=== PATIENT | female | born 1975 | race Caucasian/White ===

== ENCOUNTER 2018-10-06 18:30 | Emergency (ER) | payer BC, SELFPAY ==
[2018-10-06] MEDS ORDERED: ACETAMINOPHEN 500 MG TAB ONE (20:44)
--- NOTE | 2018-10-06 20:44 | RAD REPORT ---
EXAM DESCRIPTION: RAD - Chest Single View - 10/06/2018 8:34 pm CLINICAL HISTORY: CHEST PAIN Chest pain. COMPARISON: No comparisons FINDINGS: Portable technique limits examination quality. The lungs are grossly clear. The heart is normal in size. No displaced fractures. IMPRESSION: No acute intrathoracic process suspected.
[2018-10-06 20:53] LABS: Absolute Lymphocytes (CBC) 3.4 K/uL (0.7-4.9); Absolute Monocytes 0.7 K/uL (0.1-1.3); Absolute Neutrophil 4.2 K/uL (1.8-8.0); Eosinophils % 0.8 % (0-4.4); Hematocrit 43.4 % (36.0-45.0); MPV 8.3 fL (7.6-11.3); Monocytes % 8.2 % (3.3-12.3); RBC Red Blood Cell Count 4.71 M/uL (3.86-4.86)
[2018-10-06 21:04] LABS: BUN Blood Urea Nitrogen 10 mg/dL (7-18); Bicarbonate 24 mmol/L (21-32); Glucose Level 87 mg/dL (74-106); Potassium 3.5 mmol/L (3.5-5.1); Sodium Level 140 mmol/L (136-145); Troponin (Emerg Dept Use Only) < 0.02 ng/mL (0.0-0.045)
[2018-10-06 21:46] LABS: Urine Blood 2+ (NEG); Urine Glucose NEGATIVE (NEG); Urine Protein 1+ (NEG); Urine Specific Gravity >1.030 (1.005-1.030)
[2018-10-06 21:52] LABS: Urine Bacteria 20-50 /HPF (<20); Urine RBC <5 /HPF (NONE SEEN)
[2018-10-06 21:53] LABS: Urine Culture Reflex Order REFLEXED; Urine Mucus 1+ /HPF (NONE SEEN)
--- NOTE | 2018-10-06 21:58 | ER ---
Nurse's Notes [facility] Name: Radha Mcintosh Age: 42 yrs Sex: Female : 1975 Arrival Date: 10/06/2018 Time: 18:32 Bed 20 Private MD: Diagnosis: Chest pain, unspecified Presentation: 10/06 18:44 Presenting complaint: Patient states: for the past three days I have had chest pain, ch sob, and everying feels intense. light are too bright, noises are too loud, i feel very anxious. Transition of care: patient was not received from another setting of care. Onset of symptoms was October 03, 2018. Risk Assessment: Do you want to hurt yourself or someone else? Patient reports no desire to harm self or others. Initial Sepsis Screen: Does the patient meet any 2 criteria? No. Patient's initial sepsis screen is negative. Does the patient have a suspected source of infection? No. Patient's initial sepsis screen is negative. Care prior to arrival: None. 18:44 Method Of Arrival: Ambulatory 18:44 Acuity: LENORE 3 ch Triage Assessment: 18:46 General: Appears in no apparent distress. unkempt, Behavior is anxious, fussy, ch restless. Pain: Complains of pain in chest Pain currently is 8 out of 10 on a pain scale. Cardiovascular: Reports chest pain, shortness of breath, Capillary refill < 3 seconds in bilateral Clubbing of nail beds is absent Patient's skin is warm and dry. 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 - Social history:: Smoking status: Patient uses tobacco products, smokes one-half pack cigarettes per day, Patient uses street drugs, marijuana, Patient/guardian denies using alcohol. - Ebola Screening: : Patient negative for fever greater than or equal to 101.5 degrees Fahrenheit, and additional compatible Ebola Virus Disease symptoms Patient denies exposure to infectious person Patient denies travel to an Ebola-affected area in the 21 days before illness onset No symptoms or risks identified at this time. Screenin:53 Abuse screen: Denies threats or abuse. Denies injuries from another. Nutritional rr5 screening: No deficits noted. Tuberculosis screening: No symptoms or risk factors identified. Fall Risk IV access (20 points). Total Bhakta Fall Scale indicates No Risk (0-24 pts). Assessment: 19:55 General: Appears in no apparent distress. uncomfortable, Behavior is calm, cooperative, rr5 appropriate for age. Pain: Complains of pain in chest Pain radiates to jaw Pain currently is 10 out of 10 on a pain scale. Quality of pain is described as aching, Pain began gradually, Is intermittent. 19:55 Neuro: Level of Consciousness is awake, alert, obeys commands, Oriented to person, rr5 place, time, situation, Appropriate for age Reports light headed. Cardiovascular: Reports chest pain, Capillary refill < 3 seconds Patient's skin is warm and dry. Respiratory: Airway is patent Respiratory effort is even, unlabored, Respiratory pattern is regular, symmetrical. GI: No signs and/or symptoms were reported involving the gastrointestinal system. : No signs and/or symptoms were reported regarding the genitourinary system. EENT: No signs and/or symptoms were reported regarding the EENT system. Derm: Skin is intact, Skin temperature is warm. Musculoskeletal: Capillary refill < 3 seconds, Range of motion: intact in all extremities. 21:00 Reassessment: Patient appears in no apparent distress at this time. Patient is alert, rr5 oriented x 3, equal unlabored respirations, skin warm/dry/pink. awaiting for results. no complaints made. Patient states feeling better. Patient states symptoms have improved. 22:00 Reassessment: Patient appears in no apparent distress at this time. awaiting for review.rr5 22:30 Reassessment: Patient appears in no apparent distress at this time. Patient is alert, rr5 oriented x 3, equal unlabored respirations, skin warm/dry/pink. discharge instruction given and explained without complaints made. Patient states feeling better. Patient states symptoms have improved. Vital Signs: 18:46 BP 133 / 76; Pulse 76; Resp 14; Temp 98.8; Pulse Ox 99% on R/A; Weight 77.11 kg; Height ch 5 ft. 5 in. (165.10 cm); Pain 8/10; 20:00 BP 96 / 79; Pulse 63; Resp 17; Temp 98.5; Pulse Ox 99% on R/A; Pain 10/10; rr5 21:00 BP 99 / 60; Pulse 54; Resp 19; Pulse Ox 98% ; Pain 6/10; rr5 22:00 BP 101 / 70; Pulse 60; Resp 16; Temp 98.3; Pulse Ox 100% ; Pain 4/10; rr5 22:30 BP 97 / 70; Pulse 59; Resp 17; Temp 97.5; Pulse Ox 99% ; Pain 4/10; rr5 18:46 Body Mass Index 28.29 (77.11 kg, 165.10 cm) ED Course: 18:32 Patient arrived in ED. mr 18:45 Triage completed. 18:46 Arm band placed on left wrist. Patient placed in waiting room. EKG completed in triage. Results shown to MD. 19:43 Tomasz Joseph RN is Primary Nurse. rr5 19:59 Sincere Rowe MD is Attending Physician. gs 20:10 Patient has correct armband on for positive identification. Placed in gown. Bed in low rr5 position. Call light in reach. Side rails up X2. monitor and storage bin tender on. Pulse ox on. NIBP on. 20:15 Initial lab(s) drawn, by me, sent to lab. Inserted saline lock: 20 gauge in left rr5 forearm, using aseptic technique. Blood collected. 20:34 XRAY Chest (1 view) In Process Unspecified. EDMS 21:57 Shashank Walker MD is Referral Physician. gs 22:30 No provider procedures requiring assistance completed. IV discontinued, intact, rr5 bleeding controlled, No redness/swelling at site. Pressure dressing applied. 22:30 Patient maintains SpO2 saturation greater than 95% on room air. rr5 Administered Medications: 20:30 Drug: Tylenol 1000 mg {Note: complaining of chest pain..} Route: PO; rr5 21:30 Follow up: Response: No adverse reaction rr5 Outcome: 21:57 Discharge ordered by . gs 22:30 Discharged to home ambulatory. rr5 22:30 Condition: stable 22:30 Discharge instructions given to patient, Instructed on discharge instructions, follow up and referral plans. Demonstrated understanding of instructions, follow-up care. 22:33 Patient left the ED. rr5 Signatures: Dispatcher [employer] Olimpia Ross RN RN Frederick, Jo mr Sincere Rowe MD MD gs Roque, Raymond, RN RN rr5
--- NOTE | 2018-10-06 21:58 | EDPHYS ---
Physician Documentation [facility] Name: Radha Mcintosh Age: 42 yrs Sex: Female : 1975 Arrival Date: 10/06/2018 Time: 18:32 Bed 20 Private MD: ED Physician Sincere Rowe HPI: 10/06 21:51 This 42 yrs old Female presents to ER via Ambulatory with complaints of Chest gs Pain. 21:51 The patient or guardian reports chest pain that is located primarily in the anterior gs chest wall. 21:52 Onset: 3 day(s) ago. The pain does not radiate. Associated signs and symptoms: gs Pertinent positives: lightheadedness, anxious. The chest pain is described as a heaviness. Duration: The patient or guardian reports multiple episodes, that are intermittent, that wax and wane, with no pattern, the episodes last approximately 5 minute(s). Severity of pain: At its worst the pain was moderate in the emergency department the pain has improved markedly. The patient has experienced similar episodes in the past, a few times. 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 - Social history:: Smoking status: Patient uses tobacco products, smokes one-half pack cigarettes per day, Patient uses street drugs, marijuana, Patient/guardian denies using alcohol. - Ebola Screening: : Patient negative for fever greater than or equal to 101.5 degrees Fahrenheit, and additional compatible Ebola Virus Disease symptoms Patient denies exposure to infectious person Patient denies travel to an Ebola-affected area in the 21 days before illness onset No symptoms or risks identified at this time. ROS: 21:52 All other systems are negative. gs Exam: 21:52 Head/Face: Normocephalic, atraumatic. Eyes: Pupils equal round and reactive to light, gs extra-ocular motions intact. Lids and lashes normal. Conjunctiva and sclera are non-icteric and not injected. Cornea within normal limits. Periorbital areas with no swelling, redness, or edema. ENT: Nares patent. No nasal discharge, no septal abnormalities noted. Tympanic membranes are normal and external auditory canals are clear. Oropharynx with no redness, swelling, or masses, exudates, or evidence of obstruction, uvula midline. Mucous membranes moist. Neck: Trachea midline, no thyromegaly or masses palpated, and no cervical lymphadenopathy. Supple, full range of motion without nuchal rigidity, or vertebral point tenderness. No Meningismus. Chest/axilla: Normal chest wall appearance and motion. Nontender with no deformity. No lesions are appreciated. Cardiovascular: Regular rate and rhythm with a normal S1 and S2. No gallops, murmurs, or rubs. Normal PMI, no JVD. No pulse deficits. Respiratory: Lungs have equal breath sounds bilaterally, clear to auscultation and percussion. No rales, rhonchi or wheezes noted. No increased work of breathing, no retractions or nasal flaring. Abdomen/GI: Soft, non-tender, with normal bowel sounds. No distension or tympany. No guarding or rebound. No evidence of tenderness throughout. Back: No spinal tenderness. No costovertebral tenderness. Full range of motion. Skin: Warm, dry with normal turgor. Normal color with no rashes, no lesions, and no evidence of cellulitis. MS/ Extremity: Pulses equal, no cyanosis. Neurovascular intact. Full, normal range of motion. Neuro: Awake and alert, GCS 15, oriented to person, place, time, and situation. Cranial nerves II-XII grossly intact. Motor strength 5/5 in all extremities. Sensory grossly intact. Cerebellar exam normal. Normal gait. 21:52 Constitutional: The patient appears alert, awake. 21:52 ECG was reviewed by the Attending Physician. Vital Signs: 18:46 BP 133 / 76; Pulse 76; Resp 14; Temp 98.8; Pulse Ox 99% on R/A; Weight 77.11 kg; Height ch 5 ft. 5 in. (165.10 cm); Pain 8/10; 20:00 BP 96 / 79; Pulse 63; Resp 17; Temp 98.5; Pulse Ox 99% on R/A; Pain 10/10; rr5 21:00 BP 99 / 60; Pulse 54; Resp 19; Pulse Ox 98% ; Pain 6/10; rr5 22:00 BP 101 / 70; Pulse 60; Resp 16; Temp 98.3; Pulse Ox 100% ; Pain 4/10; rr5 22:30 BP 97 / 70; Pulse 59; Resp 17; Temp 97.5; Pulse Ox 99% ; Pain 4/10; rr5 18:46 Body Mass Index 28.29 (77.11 kg, 165.10 cm) ch MDM: 20:15 Patient medically screened. gs 21:52 Differential diagnosis: abnormal EKG, acute myocardial infarction, chest wall pain, gs pneumonia. HEART Score: History: Slightly Suspicious (0), ECG: Normal (0), Age: < or = 45 years (0), Risk Factors: No Risk Factors Known (0), Troponin: < or = 1 x Normal Limit (0). Data reviewed: vital signs, nurses notes, lab test result(s), EKG, radiologic studies. 21:58 Counseling: I had a detailed discussion with the patient and/or guardian regarding: the gs historical points, exam findings, and any diagnostic results supporting the discharge/admit diagnosis, the presence of at least one elevated blood pressure reading (>120/80) during this emergency department visit, radiology results, the need for outpatient follow up, the need for further work-up and treatment in the hospital. Response to treatment: the patient's symptoms have resolved after treatment, the patient's pain is gone. Special discussion: Based on the patient's history, exam, and Dx evaluation, there is no indication for emergent intervention or inpatient Tx. It is understood by the patient/guardian that if the Sx's persist or worsen they need to return immediately for re-evaluation. I have referred the patient to see his PCP for further evaluation of high blood pressure. 10/06 20:18 Order name: Basic Metabolic Panel; Complete Time: 21:39 10/06 20:18 Order name: CBC with Diff; Complete Time: 21:39 10/06 20:18 Order name: Troponin (emerg Dept Use Only); Complete Time: 21:39 gs 10/06 20:47 Order name: Urine Microscopic Only; Complete Time: 21:58 rr5 10/06 20:53 Order name: Urine Dipstick--Ancillary (enter results); Complete Time: 21:58 ar5 10/06 20:53 Order name: Urine --Ancillary (enter results); Complete Time: 21:58 ar5 10/06 20:18 Order name: XRAY Chest (1 view); Complete Time: 20:54 10/06 20:18 Order name: EKG; Complete Time: 20:20 10/06 20:18 Order name: Cardiac monitoring; Complete Time: 20:22 10/06 20:18 Order name: EKG - Nurse/Tech; Complete Time: 20:22 10/06 20:18 Order name: IV Saline Lock; Complete Time: 20:22 10/06 20:18 Order name: Labs collected and sent; Complete Time: 20:22 10/06 21:54 Order name: Urine Culture [facility] 10/06 20:18 Order name: O2 Per Protocol; Complete Time: 20:22 10/06 20:18 Order name: O2 Sat Monitoring; Complete Time: 20:22 10/06 20:18 Order name: Urine Test (obtain specimen); Complete Time: 20:47 10/06 20:18 Order name: Urine Dipstick-Ancillary (obtain specimen); Complete Time: 20:47 gs EC:52 Rate is 78 beats/min. Rhythm is regular. DC interval is normal. QRS interval is normal. gs No Q waves. T waves are Normal. No ST changes noted. Clinical impression: Normal ECG. Interpreted by me. Administered Medications: 20:30 Drug: Tylenol 1000 mg {Note: complaining of chest pain..} Route: PO; rr5 21:30 Follow up: Response: No adverse reaction rr5 Disposition: 10/06/18 21:57 Discharged to Home. Impression: Chest pain, unspecified. - Condition is Stable. - Discharge Instructions: Nonspecific Chest Pain, Managing Your Hypertension. - Medication Reconciliation Form, Thank You Letter, Antibiotic Education, Prescription Opioid Use form. - Follow up: Shashank Walker MD; When: 2 - 3 days; Reason: Re-evaluation by your physician. Signatures: Dispatcher [employer] Olimpia Ross, RN RN Sincere Rowe MD MD gs Roque, Raymond, RN RN rr5 Corrections: (The following items were deleted from the chart) 22:33 21:57 10/06/2018 21:57 Discharged to Home. Impression: Chest pain, unspecified. rr5 Condition is Stable. Forms are Medication Reconciliation Form, Thank You Letter, Antibiotic Education, Prescription Opioid Use. Follow up: Shashank Walker; When: 2 - 3 days; Reason: Re-evaluation by your physician. gs
--- NOTE | 2018-10-07 08:04 | EKG ---
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
== END 2018-10-06 22:33 | disposition home or self-care (01) ==
LOC: ER 18:30
DX: R07.9 Chest pain, unspecified (principal); F41.9 Anxiety disorder, unspecified; F17.210 Nicotine dependence, cigarettes, uncomplicated
CPT/HCPCS: 36415; 71045; 80048; 81003; 81015; 81025; 84484; 85025; 87086; 87088; 93005; 99285

== ENCOUNTER 2021-01-08 11:29 | Inpatient (IN) | payer OTHER ==
[2021-01-08] MEDS ORDERED: ONDANSETRON 4 MG/2 ML VIAL ONE ×2 (13:03→14:25)
[2021-01-08] MEDS ORDERED: MORPHINE 4 MG/ML SYR ONE ×3 (13:03→16:17)
[2021-01-08 13:14] LABS: Potassium 3.9 mmol/L (3.5-5.1)
--- NOTE | 2021-01-08 13:16 | RAD REPORT ---
EXAM DESCRIPTION: CT - Pelvis W/Cont - 01/08/2021 1:02 pm CLINICAL HISTORY: perianal abscess COMPARISON: No comparisons FINDINGS: 3 cm perianal enhancing fluid collection located at approximately the 10 to 11 o'clock pos ition from the anus in the ischioanal fossa and extending rightward to the perineum. Evaluation for a fistula is limited by CT. Involuting cyst in the right adnexa. Normal appendix. No bowel obstruction identified. No osseous abnormality. Trace pelvic free fluid which is likely physiologic. IMPRESSION: Approximately 3 cm perianal abscess.
[2021-01-08 13:22] LABS: Absolute Lymphocytes (CBC) 2.5 K/uL (0.7-4.9); Basophils % 0.7 % (0-1.3); Lymphocytes % 20.9 % (15.3-44.8); MPV 8.2 fL (7.6-11.3); RBC Red Blood Cell Count 4.51 M/uL (3.86-4.86)
--- NOTE | 2021-01-08 13:52 | EDPHYS ---
Physician Documentation [facility] Name: Radha Mcintosh Age: 45 yrs Sex: Female : 1975 Arrival Date: 01/08/2021 Time: 11:56 Bed 5 Private MD: ED Physician Michelet Reddy HPI: 01/08 12:49 This 45 yrs old Female presents to ER via Wheelchair with complaints of jr8 Abscess. 12:49 the patient presents with a swollen area of the buttocks. Onset: The symptoms/episode jr8 began/occurred gradually, 3 day(s) ago. Possible cause(s): unknown. Associated signs and symptoms: The patient has no apparent associated signs or symptoms. Modifying factors: the symptoms are alleviated by nothing, the symptoms are aggravated by walking, pressure, sitting, squeezing the lesion and expressing the contents, touching. Severity of symptoms: At their worst the symptoms were moderate, in the emergency department the symptoms are unchanged. The patient has not experienced similar symptoms in the past. The patient has not recently seen a physician. 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 - Social history:: Smoking status: Patient denies any tobacco usage or history of. ROS: 12:49 Eyes: Negative for injury, pain, redness, and discharge, ENT: Negative for injury, jr8 pain, and discharge, Neck: Negative for injury, pain, and swelling, Cardiovascular: Negative for chest pain, palpitations, and edema, Respiratory: Negative for shortness of breath, cough, wheezing, and pleuritic chest pain, Abdomen/GI: Negative for abdominal pain, nausea, vomiting, diarrhea, and constipation, Back: Negative for injury and pain, MS/Extremity: Negative for injury and deformity, Neuro: Negative for headache, weakness, numbness, tingling, and seizure. 12:49 Skin: Positive for abscess. Exam: 12:49 Cardiovascular: Regular rate and rhythm with a normal S1 and S2. No gallops, murmurs, jr8 or rubs. Normal PMI, no JVD. No pulse deficits. Respiratory: Lungs have equal breath sounds bilaterally, clear to auscultation and percussion. No rales, rhonchi or wheezes noted. No increased work of breathing, no retractions or nasal flaring. Abdomen/GI: Soft, non-tender, with normal bowel sounds. No distension or tympany. No guarding or rebound. No evidence of tenderness throughout. Back: No spinal tenderness. No costovertebral tenderness. Full range of motion. MS/ Extremity: Pulses equal, no cyanosis. Neurovascular intact. Full, normal range of motion. Neuro: Awake and alert, GCS 15, oriented to person, place, time, and situation. Cranial nerves II-XII grossly intact. Motor strength 5/5 in all extremities. Sensory grossly intact. 12:49 Constitutional: The patient appears alert, awake, in obvious pain, uncomfortable. 12:49 Skin: Patient has a markedly tender swollen and indurated localized area to her right gluteal cleft extending superiorly just before the labia majora and inferior and medially abutting against the anal orifice.. Vital Signs: 11:56 BP 108 / 64; Pulse 64; Resp 17; Temp 97.7; Pulse Ox 100% on R/A; Weight 77.11 kg; jl7 Height 5 ft. 6 in. (167.64 cm); Pain 10/10; 11:56 Body Mass Index 27.44 (77.11 kg, 167.64 cm) jl7 MDM: 12:25 Patient medically screened. jr8 13:49 Data reviewed: vital signs, nurses notes, lab test result(s), radiologic studies, CT jr8 scan. Data interpreted: Pulse oximetry: on room air is 100 %. Interpretation: normal. Counseling: I had a detailed discussion with the patient and/or guardian regarding: the historical points, exam findings, and any diagnostic results supporting the discharge/admit diagnosis, lab results, radiology results, the need for further work-up and treatment in the hospital. ED course: Dr. Bullock consulted about the perianal abscess. Will take patient to surgery in the morning. Will admit to his service as well.. 01/08 12:35 Order name: Basic Metabolic Panel; Complete Time: 13:15 jr8 01/08 12:35 Order name: CBC with Diff; Complete Time: 13:33 jr8 01/08 12:35 Order name: Blood Culture Adult (2) jr8 01/08 12:35 Order name: Procalcitonin; Complete Time: 14:03 jr8 01/08 14:05 Order name: SARS-COV-2 RT PCR; Complete Time: 14:16 EDMS 01/08 12:35 Order name: CT Pelvis w cont; Complete Time: 13:33 jr8 01/08 12:35 Order name: IV Saline Lock; Complete Time: 12:56 jr8 01/08 12:35 Order name: Labs collected and sent; Complete Time: 12:56 jr8 Administered Medications: 12:55 Drug: morphine 4 mg Route: IVP; Site: left antecubital; hb 13:33 Follow up: Response: No adverse reaction hb 12:56 Drug: Zofran (Ondansetron) 4 mg Route: IVP; Site: left antecubital; hb 13:33 Follow up: Response: No adverse reaction hb 13:58 Drug: LevaQUIN (levofloxacin) 750 mg Volume: 150 ml; Route: IVPB; Infused Over: 90 hb mins; Site: left antecubital; 13:58 Drug: NS 0.9% 1000 ml Route: IV; Rate: 1000 ml; Site: left antecubital; hb 14:05 Drug: morphine 4 mg Route: IVP; Site: left antecubital; hb 14:05 Drug: Zofran (Ondansetron) 4 mg Route: IVP; Site: left antecubital; hb 14:54 Drug: vancoMYCIN 1 grams Route: IVPB; Infused Over: 2 hrs; Site: left antecubital; hb Disposition: 16:57 Co-signature as Attending Physician, Michelet Reddy MD I agree with the assessment and rn plan of care. Attestation: The patient's history, exam findings, diagnostics, and a summary of any interventions or procedures was reviewed in detail with Gabe MEDINA. Disposition Summary: 01/08/21 13:51 Hospitalization Ordered Hospitalization Status: Observation [facility] Provider: Aston Bullock Condition: Stable jr Problem: new jr8 Symptoms: have improved jr8 Bed/Room Type: Standard [facility] Location: Telemetry/MedSurg (observation)(01/08/21 15:43) dw Room Assignment: 218(01/08/21 15:43) dw Diagnosis - Perianal Abscess jr8 Forms: - Medication Reconciliation Form jr8 - SBAR form jr8 Signatures: Dispatcher [employer] EDMariah Hunter RN RN Michelet Calloway MD MD rn Roszak, Josh, PA PA jr8 Samaria Mcclain RN RN Des Sage RN RN jl7 Corrections: (The following items were deleted from the chart) 13:02 12:40 CORONAVIRUS+MR.LAB.BRZ ordered. [facility] 15: 13:51 Telemetry/MedSurg (observation) jr8 hb 15: 13:51 jr8 hb 15:43 15:08 [facility] ER HOLD hb dw 15:43 15:08 ERHOLD- hb
--- NOTE | 2021-01-08 13:52 | ER ---
Nurse's Notes [facility] Name: Radha Mcintosh Age: 45 yrs Sex: Female : 1975 Arrival Date: 01/08/2021 Time: 11:56 Bed 5 Private MD: Diagnosis: Perianal Abscess Presentation: 01/08 11:56 Chief complaint: Patient states: Abscess on right side buttock since Wednesday, reports jl7 "It's the size of a grapefruit.". Coronavirus screen: Vaccine status: Patient reports being unvaccinated. At this time, the client does not indicate any symptoms associated with coronavirus-19. Ebola Screen: No symptoms or risks identified at this time. Initial Sepsis Screen: Does the patient meet any 2 criteria? No. Patient's initial sepsis screen is negative. Does the patient have a suspected source of infection? No. Patient's initial sepsis screen is negative. Risk Assessment: Do you want to hurt yourself or someone else? Patient reports no desire to harm self or others. Onset of symptoms was January 05, 2021. 11:56 Method Of Arrival: Wheelchair jl7 11:56 Acuity: LENORE 3 jl7 Triage Assessment: 11:58 General: Appears in no apparent distress. uncomfortable, Behavior is cooperative, jl7 anxious. Pain: Complains of pain in buttocks Pain currently is 9 out of 10 on a pain scale. 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 - Social history:: Smoking status: Patient denies any tobacco usage or history of. Screenin:10 Abuse screen: Denies threats or abuse. Nutritional screening: No deficits noted. ap3 Tuberculosis screening: No symptoms or risk factors identified. 13:00 Fall Risk None identified. hb Assessment: 12:30 General: Appears in no apparent distress. uncomfortable, Behavior is calm, cooperative. hb Pain: Pain currently is 10 out of 10 on a pain scale. Neuro: Level of Consciousness is awake, alert, obeys commands, Oriented to person, place, time, situation. Cardiovascular: Patient's skin is warm and dry. Rhythm is regular. Respiratory: Respiratory effort is even, unlabored, Respiratory pattern is regular, symmetrical. GI: No signs and/or symptoms were reported involving the gastrointestinal system. : No signs and/or symptoms were reported regarding the genitourinary system. EENT: No signs and/or symptoms were reported regarding the EENT system. Derm: Skin is pink, warm \\T\\ dry. abscess on right labia that extends to top of left thigh and left gluteal cleft. Musculoskeletal: No signs and/or symptoms reported regarding the musculoskeletal system. 13:15 Reassessment: Patient appears in no apparent distress at this time. No changes from hb previously documented assessment. Patient and/or family updated on plan of care and expected duration. Pain level reassessed. Patient is alert, oriented x 3, equal unlabored respirations, skin warm/dry/pink. 13:57 Reassessment: Per CAROL Bernal, plan is to take pt to OR in the morning, ok to eat/drink hb now, NPO after midnight. Pt verbalized understanding of plan. Vital Signs: 11:56 BP 108 / 64; Pulse 64; Resp 17; Temp 97.7; Pulse Ox 100% on R/A; Weight 77.11 kg; jl7 Height 5 ft. 6 in. (167.64 cm); Pain 10/10; 11:56 Body Mass Index 27.44 (77.11 kg, 167.64 cm) jl7 ED Course: 11:56 Patient arrived in ED. jl7 11:58 Triage completed. jl7 11:58 Arm band placed on right wrist. jl7 12:10 Patient has correct armband on for positive identification. Bed in low position. Call ap3 light in reach. Side rails up X2. 12:24 Gabe Parker PA is PHCP. jr8 12:24 Michelet Reddy MD is Attending Physician. jr8 12:50 Inserted saline lock: 18 gauge in left antecubital area, using aseptic technique. hb ,using aseptic technique. by Darren GOTTI Blood collected. 13:02 CT Pelvis w cont In Process Unspecified. EDMS 13:03 Warm blanket given. Pillow given. Pulse ox on. NIBP on. mh5 13:03 COVID swab sent to lab. 5 13:36 Samaria Mcclain, RN is Primary Nurse. hb 13:51 Aston Bullock MD is Hospitalizing Provider. jr8 15:05 No provider procedures requiring assistance completed. Patient admitted, IV remains in hb place. Administered Medications: 12:55 Drug: morphine 4 mg Route: IVP; Site: left antecubital; hb 13:33 Follow up: Response: No adverse reaction hb 12:56 Drug: Zofran (Ondansetron) 4 mg Route: IVP; Site: left antecubital; hb 13:33 Follow up: Response: No adverse reaction hb 13:58 Drug: LevaQUIN (levofloxacin) 750 mg Volume: 150 ml; Route: IVPB; Infused Over: 90 hb mins; Site: left antecubital; 13:58 Drug: NS 0.9% 1000 ml Route: IV; Rate: 1000 ml; Site: left antecubital; hb 14:05 Drug: morphine 4 mg Route: IVP; Site: left antecubital; hb 14:05 Drug: Zofran (Ondansetron) 4 mg Route: IVP; Site: left antecubital; hb 14:54 Drug: vancoMYCIN 1 grams Route: IVPB; Infused Over: 2 hrs; Site: left antecubital; hb Outcome: 13:51 Decision to Hospitalize by Provider. jr8 15:05 Admitted to ER Hold. Please see [facility] for further documentation. hb 15:05 Condition: stable 15:05 Instructed on the need for admit, Demonstrated understanding of instructions. 15:06 Patient left the ED. hb 16:37 Patient left the ED. ap3 Signatures: Dispatcher [employer] EDMS Gabe Parker PA PA jr8 Samaria Mcclain, RN RN Zaira Denson [facility] Sage RN RN jl7 Kyra Frye RN RN ap3
[2021-01-08] MEDS ORDERED: NA CHLORIDE 0.9% 250 ML ONE (14:04)
[2021-01-08] MEDS ORDERED: Levofloxacin 750mg IV 750 MG/150 ML BAG IV ONE (14:04)
[2021-01-08] MEDS ORDERED: VANCOMYCIN 1 GM/VIAL ONE (14:04)
[2021-01-08] MEDS ORDERED: NA CHLORIDE 0.9% 1,000 ML ONE (14:05)
[2021-01-08] MEDS ORDERED: ONDANSETRON 4 MG/2 ML VIAL IV PRN (15:04)
[2021-01-08] MEDS: D5 0.45 NS 1,000 ML IV SCH (15:04)
[2021-01-08] MEDS ORDERED: ACETAMINOPHEN 500 MG TAB PO PRN (15:04)
[2021-01-08 15:10] VITALS: BMI 27.4
[2021-01-08] MEDS ORDERED: D5 0.45 NS 1,000 ML IV ONE (15:39)
[2021-01-08] MEDS: MORPHINE 4 MG/ML SYR IV PRN ×3 (15:54→23:12)
[2021-01-08] MEDS ORDERED: VANCOMYCIN 1.5 GM in NA CHLORIDE 0.9% 500 ML IVPB SCH (17:00)
[2021-01-08] MEDS ORDERED: VANCOMYCIN 500 MG in NA CHLORIDE 0.9% 100 ML IVPB ONE (18:00)
[2021-01-08 18:21] LABS: Specific Gravity > 1.030 (1.005-1.030)
--- NOTE | 2021-01-08 19:24 | HP ---
Date of Admission: 01/08/2021 Reason For Admission: Pain in right buttock. History Of Present Illness: The patient is a 45-year-old female, who states that since Wednesday she martinez s had increasing pain and swelling on the right side of the anus to the buttocks. Pain is made worse by sitting, pressure, walking. No sore throat, runny nose, cough, headaches, or dizziness. No ches t pain. No fever or chills. Review of Systems: Otherwise unremarkable. Past Medical History: Negative. Past Surgical History: Tib-fib fractures. Allergies: NO ALLERGIES. Social History: The patient denies smoking or drinking alcohol. Family History: Noncontributory. Physical Examination: Vital Signs: Stable. She is currently afebrile. General: She is awake, alert, and oriented x3. Head and Neck: Cranial nerves 2 through 12 grossly within normal limits. No neck masses. No JVD. Throat clear. Neck is supple. Chest: Clear. Heart: S1 and S2. Abdomen: Soft, nondistended. Positive bowel sounds. Extremities: Neurovascular intact. Neuro: Nonfocal. Genitalia: On the perineal exam near the anus and on the right side in the lithotomy position at nadia roximately 10 o'clock position, there is induration and tender, some redness, minimal fluctuance. Laboratory Data: White count is 12,000. Absolute neutrophils are elevated. Chemistry is reviewed, essentially unremarkable. CO2 is 20, however, and the patient had a pelvic CT, which showed an appro ximately 3 cm perianal abscess. Assessment: A 45-year-old female with a right perirectal abscess. Recommendations: Admit, n.p.o., IV fluid, IV antibiotic, to the OR for exam under anesthesia, rigid proctoscopy, and incision, drainage and debridement of right perirectal abscess. The patient underst ands the risks, benefits, and alternatives and agrees to procedure. ALESSANDRO/FIOR Voice ID: [id number]
[2021-01-09] MEDS: D5 0.45 NS 1,000 ML IV SCH ×2 (01:04→04:26)
[2021-01-09] MEDS ORDERED: VANCOMYCIN/NS 1 gm 1 GM/250 ML BAG IVPB SCH (03:00)
[2021-01-09] MEDS: MORPHINE 4 MG/ML SYR IV PRN (04:35)
[2021-01-09 05:52] LABS: Absolute Lymphocytes (CBC) 2.2 K/uL (0.7-4.9); Basophils % 0.3 % (0-1.3); Lymphocytes % 19.5 % (15.3-44.8); MPV 8.4 fL (7.6-11.3); RBC Red Blood Cell Count 4.12 M/uL (3.86-4.86)
[2021-01-09 05:59] LABS: BUN Blood Urea Nitrogen 7 mg/dL (7-18); Bicarbonate 22 mmol/L (21-32); Glucose Level 102 mg/dL (74-106); Potassium 3.7 mmol/L (3.5-5.1); Sodium Level 137 mmol/L (136-145)
[2021-01-09] MEDS ORDERED: propofoL 200 MG/20 ML VIAL IV ONE (08:06)
[2021-01-09] MEDS ORDERED: FENTANYL CITR 100 MCG/2 ML ONE (08:06)
[2021-01-09] MEDS ORDERED: LIDOCAINE 1% MPF 30 ML VIAL ONE (08:07)
[2021-01-09] MEDS ORDERED: MIDAZOLAM HCL 2 MG/2 ML INJ ONE ×2 (08:07→10:13)
[2021-01-09] MEDS ORDERED: ONDANSETRON 4 MG/2 ML VIAL ONE (08:07)
[2021-01-09] MEDS ORDERED: KETOROLAC 30 MG/ML INJ ONE (08:07)
[2021-01-09] MEDS ORDERED: dexAMETHasone 10 MG/ML VIAL ONE (08:07)
[2021-01-09] MEDS ORDERED: Ringers Lactate 1,000 ML IV ONE (08:24)
[2021-01-09] MEDS ORDERED: ACETAMINOPHEN 500 MG TAB ONE (08:30)
[2021-01-09] MEDS ORDERED: CELECOXIB 100 MG CAPSULE ONE (08:32)
[2021-01-09] MEDS ORDERED: CEFAZOLIN/SWI 1gm 1 GM/10 ML SYR ONE (08:53)
--- NOTE | 2021-01-09 09:14 | P.OP ---
Master Certified Rv Technician: Alvaro BREAUX Preoperative diagnosis: Right Trista-Rectal Abscess Primary procedure: EUA, Rigid Procto, I and D and Debridement Right Trista-Rectal Abscess Anesthesia: General Estimated blood loss: min Specimen: pus Findings: as above Complications: None Transferred to: Recovery Room Condition: Good
[2021-01-09] MEDS ORDERED: KETAMINE HCL 500 MG/5 ML VIAL ONE (09:17)
[2021-01-09] MEDS ORDERED: CODEINE 30MG/APAP 300MG TAB PO PRN (09:37)
[2021-01-09 09:42] VITALS: O2SAT 100
[2021-01-09] MEDS ORDERED: SUCCINYLCHOLINE 20 MG/ML (10 ML) IV ONE (09:59)
[2021-01-09] MEDS ORDERED: CHLORHEXIDINE GLUCO 4% 120 ML TOP SCH (10:00)
[2021-01-09] MEDS ORDERED: MEPERIDINE HCL 25 MG/ML SYR ONE (10:11)
--- NOTE | 2021-01-09 10:25 | OP ---
Date of Procedure: 01/09/2021 Surgeon: Aston Bullock MD Adjunct Writing Instructor: Alvaro Duong, surgical lead. Preoperative Diagnosis: Right perirectal abscess. Postoperative Diagnosis: Right perirectal abscess. Procedure: Exam under anesthesia; rigid proctoscopy; incision, drainage, and debridement of right pe rirectal abscess. Estimated Blood Loss: Minimal. Specimen: Pus. Findings: As above. Anesthesia: General. Complications: None. Disposition: The patient tolerated the procedure in stable condition and taken to recovery in good g eneral condition. Operative Note: The patient was brought to the OR and placed in supine position. General anesthesia was begun. The patient was placed in the lithotomy position. Prepped and draped in usual sterile f ashion. Exam under anesthesia and rigid proctoscopy performed, no evidence of intraluminal disease i dentified and then Marcaine 0.5% infiltrated over the reddened area at the 10 to 11 o'clock position to the anus on the right perineum and a 3 cm incision was made in deep to the subcutaneous tissue. A bscess cavity identified, opened with a 15 blade. Pus under pressure evacuated, loculation broken up , necrotic tissue debrided. Wound irrigated. Cultures done. Bleeding controlled with cautery. Wet -to-dry normal saline dressing change applied. The patient tolerated the procedure in stable condition and taken to Recovery in good gener al condition. /MODL Voice ID: [id number] Report ID: [id number]
[2021-01-09] MEDS: VANCOMYCIN 1.5 GM in NA CHLORIDE 0.9% 500 ML IVPB SCH (13:17)
[2021-01-09] MEDS: Levofloxacin 750mg IV 750 MG/150 ML BAG IV SCH (17:34)
[2021-01-09] MEDS: HYDROMORPHONE HCL 1 MG/ML INJ IV PRN (17:34)
[2021-01-09] MEDS: MUPIROCIN 2% OINT 22GM TUBE TOP SCH (20:00)
[2021-01-09] MEDS: ONDANSETRON 4 MG/2 ML VIAL IV PRN (20:01)
[2021-01-10] MEDS: D5 0.45 NS 1,000 ML IV SCH ×3 (05:04→17:42)
[2021-01-10] MEDS: VANCOMYCIN 1.5 GM in NA CHLORIDE 0.9% 500 ML IVPB SCH ×2 (06:27→18:00)
[2021-01-10] MEDS: MUPIROCIN 2% OINT 22GM TUBE TOP SCH ×2 (09:00→21:00)
[2021-01-10] MEDS: HYDROMORPHONE HCL 1 MG/ML INJ IV PRN ×2 (13:23→17:41)
--- NOTE | 2021-01-10 15:59 | PN ---
Date of Progress Note: 01/10/2021 Subjective: The patient is awake, alert, feels much better. Objective: Vital signs: Stable and afebrile. Skin: Dressing is clean, dry and intact. Laboratory Data: Microbiology: Gram stain done shows gram positive cocci in pairs and chains. Sens itivity is pending. Assessment: Status post I and D and debridement, perirectal abscess. Recommendations: Continue IV antibiotics. Check cultures and adjust antibiotics accordingly prior t o discharge and wound care is ordered and we are teaching the family. /MODL Voice ID: [id number] Report ID: [id number]
[2021-01-10] MEDS: Levofloxacin 750mg IV 750 MG/150 ML BAG IV SCH (17:42)
[2021-01-10] MEDS: ONDANSETRON 4 MG/2 ML VIAL IV PRN (17:42)
[2021-01-11] MEDS: D5 0.45 NS 1,000 ML IV SCH (03:04)
[2021-01-11 05:18] VITALS: BP 99/58; TEMP 98
[2021-01-11] MEDS: VANCOMYCIN 1.5 GM in NA CHLORIDE 0.9% 500 ML IVPB SCH (06:00)
[2021-01-11] MEDS: MUPIROCIN 2% OINT 22GM TUBE TOP SCH (08:11)
--- NOTE | 2021-01-11 10:00 | DS ---
Date of Discharge: 01/11/2021 Admitting Diagnosis: Perirectal abscess. Discharge Diagnosis: Perirectal abscess. Procedure Performed: Incision, drainage and debridement of perirectal abscess, exam under anesthesia , and rigid proctoscopy. Hospital Course: The patient is a 45-year-old female, underwent the aforementioned procedure. Posto peratively, she was kept an extra day for IV antibiotics. Currently, she is doing well. Pain is con trolled. Wound is clean. Infection is under control. She is afebrile. Therefore, the patient will be discharged to home. Disposition: Home. Condition: Stable. Discharge Instructions: Resume home medications and diet. Activity as tolerated. No heavy lifting. Follow up [facility] in 1-2 weeks. Cipro 500 mg p.o. q.12, Tylenol No. 3 one tablet p.o. q.4 p.r.n. pain. Wet-to-dry normal saline dressing changes as instructed. /MODL Voice ID: [id number] Report ID: [id number]
== END 2021-01-11 11:15 | disposition home or self-care (01) | DRG 983 ==
LOC: ER 11:29 → ERHOLD 14:18 → 2ND 16:05 → OBSVTOIN 20:08
PROVIDERS: ADMIT Surgery; ATTEND Surgery
PROC: 0JD90ZZ Extraction of Buttock Subcutaneous Tissue and Fascia, Open Approach (ICD-10-PCS; principal; 2021-01-09 09:00)
DX: K61.1 Rectal abscess (principal); Z20.822 Contact with and (suspected) exposure to COVID-19
CPT/HCPCS: 36415; 72193; 80048; 80202; 81025; 82565; 84145; 85025; 87040; 87070; 87075; 87077; 87186; 87205; 96374; 96375; 99285; G0378; J0330; J0690; J1100; J1170; J2175; J2250; J2405; J2704; J3010; J3370; J7030; J7040; J7050; J7120; J7799; Q9967; U0003

== ENCOUNTER 2021-07-02 08:15 | Emergency (ER) | payer OTHER ==
[2021-07-02 08:36] LABS: Urine Blood 2+ (Negative); Urine Glucose Negative (Negative); Urine Protein 2+ (Negative); Urine Specific Gravity 1.025 (1.005-1.030); Urine pH 5.5 (5.0-7.0)
[2021-07-02] MEDS ORDERED: KETOROLAC 30 MG/ML INJ ONE (09:03)
[2021-07-02] MEDS ORDERED: MORPHINE 4 MG/ML SYR ONE (09:03)
[2021-07-02] MEDS ORDERED: ONDANSETRON 4 MG/2 ML VIAL ONE (09:04)
[2021-07-02] MEDS ORDERED: NA CHLORIDE 0.9% 1,000 ML ONE (09:07)
[2021-07-02 09:11] LABS: Absolute Lymphocytes (CBC) 1.5 K/uL (0.7-4.9); Hematocrit 39.8 % (36.0-45.0); Lymphocytes % 11.6 % (15.3-44.8); MPV 7.7 fL (7.6-11.3); RBC Red Blood Cell Count 4.49 M/uL (3.86-4.86)
[2021-07-02 09:13] LABS: Protime INR 1.12
[2021-07-02 09:18] LABS: Urine Specific Gravity/Preg 1.025 (1.005-1.030)
[2021-07-02 09:30] LABS: ALT/SGPT 15 U/L (12-78); AST/SGOT 9 U/L (15-37); Albumin 3.4 g/dL (3.4-5.0); Alkaline Phosphatase 57 U/L (45-117); BUN Blood Urea Nitrogen 10 mg/dL (7-18); Bicarbonate 23 mmol/L (21-32); Bilirubin Direct 0.2 mg/dL (0-0.2); Bilirubin Total 0.8 mg/dL (0.2-1.0); Glucose Level 125 mg/dL (74-106); Lipase 59 U/L (73-393); Magnesium 2.1 mg/dL (1.8-2.4); NT PRO-BNP 57 pg/mL (<125); Potassium 3.6 mmol/L (3.5-5.1); Protein, Total 7.3 g/dL (6.4-8.2); Sodium Level 135 mmol/L (136-145)
[2021-07-02 09:32] LABS: Troponin High Sensitivity < 3.00 pg/mL (<58.9)
--- NOTE | 2021-07-02 10:22 | RAD REPORT ---
EXAM DESCRIPTION: CT - Angio Aorta For Dissection - 07/02/2021 9:53 am CLINICAL HISTORY: Shortness of breath, abdominal pain COMPARISON: CT pelvis 2020 TECHNIQUE: Computed tomography angiography of the chest, abdomen pelvis were obtained. 100 cc Isovue 370 was administered intravenously. Coronal and sagittal reconstruction were performed. MIP 3D reconstruction was performed All CT scans are performed using dose optimization technique as appropriate and may include automated exposure control or mA/KV adjustment according to patient size. FINDINGS: An aortic dissection is not seen. An aortic aneurysm is not displayed. Pulmonary embolus is not seen The celiac, SMA and YEIMY are patent . A lung consolidation is not present. A pericardial effusion is not seen. A pleural effusion is not no becki. The liver,spleen, pancreas, adrenalsand kidneys demonstrate no significant abnormality. The appendix is normal. There no evidence diverticulitis. Small umbilical hernia. Mild prominence of the endometrium. Bladder wall appears thickened. IMPRESSION: Negative for an aortic dissection. Negative for pulmonary embolus Prominence of the endometrium. If the patient is premenopausal then this likely is not significant. I f the patient is postmenopausal then this could indicate neoplasm, hyperplasia or polyp. Mild bladder wall thickening may indicate cystitis
--- NOTE | 2021-07-02 10:26 | ER ---
Nurse's Notes [facility] Name: Radha Mcintosh Age: 45 yrs Sex: Female : 1975 Arrival Date: 07/02/2021 Time: 08:16 Bed 5 Private MD: Soto Landeros Diagnosis: Acute cystitis;UTI/ Urinary tract infection, site not specified Presentation: 07/02 08:21 Chief complaint: Patient states: she started having right lower flank pain on ap3 06/23/2021. This morning she noticed blood in her urine and also began having right sided chest pain. Coronavirus screen: At this time, the client does not indicate any symptoms associated with coronavirus-19. Ebola Screen: No symptoms or risks identified at this time. Initial Sepsis Screen: Does the patient meet any 2 criteria? No. Patient's initial sepsis screen is negative. Does the patient have a suspected source of infection? No. Patient's initial sepsis screen is negative. Risk Assessment: Do you want to hurt yourself or someone else? Patient reports no desire to harm self or others. Onset of symptoms was June 23, 2021. 08:21 Method Of Arrival: Ambulatory ap3 08:21 Acuity: LENORE 3 ap3 Triage Assessment: 08:23 General: Appears in no apparent distress. uncomfortable, Behavior is calm, cooperative, ap3 appropriate for age. Pain: Complains of pain in right side of chest, right low back area Pain currently is 8 out of 10 on a pain scale. Neuro: Level of Consciousness is awake, alert, obeys commands, Oriented to person, place, time, situation, Appropriate for age Gait is steady, Speech is normal. Cardiovascular: Patient's skin is warm and dry. Respiratory: Airway is patent Respiratory effort is even, unlabored. : Reports pain in right flank(s). 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 - Social history:: Smoking status: Patient reports the use of cigarette tobacco products, smokes one-half pack cigarettes per day. - Family history:: not pertinent. Screenin:25 Abuse screen: Denies threats or abuse. Nutritional screening: No deficits noted. ap3 Tuberculosis screening: No symptoms or risk factors identified. 08:32 Fall Risk No fall in past 12 months (0 pts). No secondary diagnosis (0 pts). IV access vg1 (20 points). Ambulatory Aid- None/Bed Rest/Nurse Assist (0 pts). Gait- Normal/Bed Rest/Wheelchair (0 pts) Mental Status- Oriented to own ability (0 pts). Total Bhakta Fall Scale indicates No Risk (0-24 pts). Assessment: 08:30 General: Appears in no apparent distress. uncomfortable, Behavior is calm, cooperative. vg1 Pain: Complains of pain in lower back, left flank, right flake, and chest Pain does not radiate. Pain currently is 8 out of 10 on a pain scale. Pain began 2-3 days ago. Neuro: Level of Consciousness is awake, alert, obeys commands, Oriented to person, place, time, situation. Cardiovascular: Reports chest pain, since this morning Denies shortness of breath, Patient's skin is warm and dry. Respiratory: Airway is patent Respiratory effort is even, unlabored, Denies shortness of breath. GI: Abdomen is flat, Reports nausea, vomiting. : Reports burning with urination, urinary frequency, 'blood in urine this morning'. EENT: No signs and/or symptoms were reported regarding the EENT system. Derm: Skin is intact, is healthy with good turgor. Musculoskeletal: Circulation, motion, and sensation intact. 09:34 Reassessment: Patient appears in no apparent distress at this time. Patient and/or vg1 family updated on plan of care and expected duration. Pain level reassessed. Patient is alert, oriented x 3, equal unlabored respirations, skin warm/dry/pink. Rated pain 3/10 Patient states feeling better. 10:32 Reassessment: Patient appears in no apparent distress at this time. No changes from vg1 previously documented assessment. Patient and/or family updated on plan of care and expected duration. Pain level reassessed. Patient is alert, oriented x 3, equal unlabored respirations, skin warm/dry/pink. pt up for d/c, currently waiting for IV antibiotics to complete. Vital Signs: 08:21 BP 106 / 73; Pulse 90; Resp 17; Temp 99.4(O); Pulse Ox 98% ; Weight 77.11 kg; Height 5 ap3 ft. 6 in. (167.64 cm); Pain 8/10; 09:35 BP 91 / 61; Pulse 66; Resp 15; Pulse Ox 100% ; vg1 10:33 BP 99 / 60; Pulse 80; Resp 15; Pulse Ox 98% on R/A; vg1 08:21 Body Mass Index 27.44 (77.11 kg, 167.64 cm) ap3 ED Course: 08:16 Patient arrived in ED. as 08:19 Soto Landeros DO is Private Physician. as 08:23 Gardenia Downs, SHEN is Primary Nurse. vg1 08:23 Triage completed. ap3 08:25 John Murray MD is Attending Physician. topher 08:26 Patient maintains SpO2 saturation greater than 95% on room air. ap3 08:26 Arm band placed on right wrist. ap3 08:32 Patient has correct armband on for positive identification. Bed in low position. Call vg1 light in reach. Side rails up X 1. bone worker on. Pulse ox on. NIBP on. 08:40 Inserted saline lock: 20 gauge in right antecubital area, using aseptic technique. vg1 Blood collected. 09:53 Angio Aorta For Dissection In Process Unspecified. EDMS 10:03 XRAY Chest (1 view) In Process Unspecified. EDMS 10:25 Soto Landeros DO is Referral Physician. topher 11:05 No provider procedures requiring assistance completed. IV discontinued, intact, vg1 bleeding controlled, No redness/swelling at site. Pressure dressing applied. Administered Medications: 09:05 Drug: NS 0.9% 1000 ml Route: IV; Rate: 1 bolus; Site: right antecubital; vg1 10:47 Follow up: IV Status: Completed infusion; IV Intake: 1000ml vg1 09:05 Drug: Zofran (Ondansetron) 4 mg Route: IVP; Site: right antecubital; vg1 09:34 Follow up: Response: No adverse reaction; Marked relief of symptoms vg1 09:07 Drug: Ketorolac 30 mg Route: IVP; Site: right antecubital; vg1 09:34 Follow up: Response: No adverse reaction; Pain is decreased vg1 09:09 Drug: morphine 4 mg Route: IVP; Site: right antecubital; vg1 09:34 Follow up: Response: No adverse reaction; Pain is decreased vg1 10:29 Drug: Rocephin (cefTRIAXone) 1 grams Route: IV; Rate: per protocol; Site: right vg1 antecubital; 10:47 Follow up: IV Status: Completed infusion vg1 10:32 Drug: LevOfloxacin 750 mg Route: PO; vg1 10:47 Follow up: Response: No adverse reaction vg1 Intake: 10:47 IV: 1000ml; Total: 1000ml. vg1 Outcome: 10:26 Discharge ordered by . topher 11:05 Discharged to home ambulatory. vg1 11:05 Condition: good 11:05 Discharge instructions given to patient, Instructed on discharge instructions, follow up and referral plans. medication usage, Demonstrated understanding of instructions, follow-up care, medications, Prescriptions given X 2. 11:05 Patient left the ED. vg1 Signatures: Dispatcher [employer] EDJohn Russo MD MD cha Martinez, Amelia as Prokisch, Amanda, RN RN ap3 Gardenia Downs RN RN vg1
--- NOTE | 2021-07-02 10:26 | EDPHYS ---
Physician Documentation [facility] Name: Radha Mcintosh Age: 45 yrs Sex: Female : 1975 Arrival Date: 07/02/2021 Time: 08:16 Bed 5 Private MD: [facility] ED Physician John Murray HPI: 07/02 09:32 This 45 yrs old Female presents to ER via Ambulatory with complaints of Flank topher Pain, Chest Pain, Nausea. 09:32 The patient complains of pain in the left mid back and right mid back. 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 - Social history:: Smoking status: Patient reports the use of cigarette tobacco products, smokes one-half pack cigarettes per day. - Family history:: not pertinent. ROS: 09:33 Constitutional: Negative for fever, chills, and weight loss, Eyes: Negative for injury, topher pain, redness, and discharge, ENT: Negative for injury, pain, and discharge, Neck: Negative for injury, pain, and swelling, Cardiovascular: Negative for chest pain, palpitations, and edema, Respiratory: Negative for shortness of breath, cough, wheezing, and pleuritic chest pain, : Negative for injury, bleeding, discharge, and swelling, MS/Extremity: Negative for injury and deformity, Skin: Negative for injury, rash, and discoloration, Neuro: Negative for headache, weakness, numbness, tingling, and seizure, Psych: Negative for depression, anxiety, suicide ideation, homicidal ideation, and hallucinations, Allergy/Immunology: Negative for hives, rash, and allergies, Endocrine: Negative for neck swelling, polydipsia, polyuria, polyphagia, and marked weight changes, Hematologic/Lymphatic: Negative for swollen nodes, abnormal bleeding, and unusual bruising. 09:33 Abdomen/GI: Positive for abdominal pain, of the right upper quadrant and left upper quadrant. 09:33 Back: Positive for flank pain, bilaterally. Exam: 09:33 Constitutional: This is a well developed, well nourished patient who is awake, alert, topher and in no acute distress. Head/Face: Normocephalic, atraumatic. Eyes: Pupils equal round and reactive to light, extra-ocular motions intact. Lids and lashes normal. Conjunctiva and sclera are non-icteric and not injected. Cornea within normal limits. Periorbital areas with no swelling, redness, or edema. ENT: Nares patent. No nasal discharge, no septal abnormalities noted. Tympanic membranes are normal and external auditory canals are clear. Oropharynx with no redness, swelling, or masses, exudates, or evidence of obstruction, uvula midline. Mucous membranes moist. Neck: Trachea midline, no thyromegaly or masses palpated, and no cervical lymphadenopathy. Supple, full range of motion without nuchal rigidity, or vertebral point tenderness. No Meningismus. Chest/axilla: Normal chest wall appearance and motion. Nontender with no deformity. No lesions are appreciated. Cardiovascular: Regular rate and rhythm with a normal S1 and S2. No gallops, murmurs, or rubs. Normal PMI, no JVD. No pulse deficits. Respiratory: Lungs have equal breath sounds bilaterally, clear to auscultation and percussion. No rales, rhonchi or wheezes noted. No increased work of breathing, no retractions or nasal flaring. Female : Normal external genitalia. Skin: Warm, dry with normal turgor. Normal color with no rashes, no lesions, and no evidence of cellulitis. MS/ Extremity: Pulses equal, no cyanosis. Neurovascular intact. Full, normal range of motion. Neuro: Awake and alert, GCS 15, oriented to person, place, time, and situation. Cranial nerves II-XII grossly intact. Motor strength 5/5 in all extremities. Sensory grossly intact. Cerebellar exam normal. Normal gait. Psych: Awake, alert, with orientation to person, place and time. Behavior, mood, and affect are within normal limits. 09:33 Abdomen/GI: Inspection: abdomen appears normal, Bowel sounds: normal, in all quadrants, Palpation: mild abdominal tenderness, in the right upper quadrant and left upper quadrant, Liver: no appreciated palpable abnormalities, Hernia: not appreciated. 09:36 ECG was reviewed by the Attending Physician. [facility] Vital Signs: 08:21 BP 106 / 73; Pulse 90; Resp 17; Temp 99.4(O); Pulse Ox 98% ; Weight 77.11 kg; Height 5 ap3 ft. 6 in. (167.64 cm); Pain 8/10; 09:35 BP 91 / 61; Pulse 66; Resp 15; Pulse Ox 100% ; vg1 10:33 BP 99 / 60; Pulse 80; Resp 15; Pulse Ox 98% on R/A; vg1 08:21 Body Mass Index 27.44 (77.11 kg, 167.64 cm) ap3 MDM: 08:25 Patient medically screened. topher 09:33 Differential diagnosis: pyelonephritis, UTI. Data reviewed: vital signs, nurses notes. 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 Test interpretation: by ED physician or midlevel provider: ECG, plain radiologic studies. Counseling: I had a detailed discussion with the patient and/or guardian regarding: the historical points, exam findings, and any diagnostic results supporting the discharge/admit diagnosis, lab results, radiology results. 07/02 08:35 Order name: Urine Dipstick-Ancillary; Complete Time: 10:07 EDPA 03 08:36 Order name: Urine --Ancillary (enter results); Complete Time: 10:07 bd 07/02 09:03 Order name: Basic Metabolic Panel; Complete Time: 10:07 topher 07/02 09:03 Order name: CBC with Diff; Complete Time: 10:07 topher 07/02 09:03 Order name: LFT's; Complete Time: 10:07 topher 07/02 09:03 Order name: Magnesium; Complete Time: 10:07 topher 07/02 09:03 Order name: NT PRO-BNP; Complete Time: 10:07 topher 07/02 09:03 Order name: PT-INR; Complete Time: 10:07 topher 07/02 09:03 Order name: Troponin HS; Complete Time: 10:07 topher 07/02 09:03 Order name: XRAY Chest (1 view) [facility] 07/02 09:03 Order name: Lipase; Complete Time: 10:07 topher 07/02 10:24 Order name: Urine Culture [facility] 07/02 09:03 Order name: EKG; Complete Time: 09:05 topher 07/02 09:03 Order name: Cardiac monitoring; Complete Time: 09:[address] [facility] 07/02 09:03 Order name: EKG - Nurse/Tech; Complete Time: : [facility] 07/02 09:03 Order name: IV Saline Lock; Complete Time: : [facility] 07/02 09:03 Order name: Labs collected and sent; Complete Time: 09: [facility] 07/02 09:03 Order name: O2 Per Protocol; Complete Time: : [facility] 07/02 09:03 Order name: O2 Sat Monitoring; Complete Time: : [facility] 07/02 09:48 Order name: Angio Aorta For Dissection; Complete Time: 10:23 EDMS EC:36 Rate is 94 beats/min. Rhythm is regular. QRS [place] is Normal. [place] interval is normal. QRS topher interval is normal. QT interval is normal. No Q waves. T waves are Normal. No ST changes noted. Clinical impression: Normal ECG and No evidence of ischemia. Interpreted by me. Reviewed by me. Administered Medications: 09:05 Drug: NS 0.9% 1000 ml Route: IV; Rate: 1 bolus; Site: right antecubital; vg1 10:47 Follow up: IV Status: Completed infusion; IV Intake: 1000ml vg1 09:05 Drug: Zofran (Ondansetron) 4 mg Route: IVP; Site: right antecubital; vg1 09:34 Follow up: Response: No adverse reaction; Marked relief of symptoms vg1 09:07 Drug: Ketorolac 30 mg Route: IVP; Site: right antecubital; vg1 09:34 Follow up: Response: No adverse reaction; Pain is decreased vg1 09:09 Drug: morphine 4 mg Route: IVP; Site: right antecubital; vg1 09:34 Follow up: Response: No adverse reaction; Pain is decreased vg1 10:29 Drug: Rocephin (cefTRIAXone) 1 grams Route: IV; Rate: per protocol; Site: right vg1 antecubital; 10:47 Follow up: IV Status: Completed infusion vg1 10:32 Drug: LevOfloxacin 750 mg Route: PO; vg1 10:47 Follow up: Response: No adverse reaction vg1 Disposition Summary: 07/02/21 10:26 Discharge Ordered Location: Home topher Problem: new topher Symptoms: have improved topher Condition: Stable topher Diagnosis - Acute cystitis topher - UTI/ Urinary tract infection, site not specified topher Followup: [facility] - With: Soto Landeros DO - When: 2 - 3 days - Reason: Recheck today's complaints, Continuance of care, Re-evaluation by your physician Discharge Instructions: - Discharge Summary Sheet topher - Dysuria topher - Urinary Tract Infection, Adult topher - Urinary Tract Infection, Adult, [id number] [facility] Forms: - Medication Reconciliation Form [facility] - Thank You Letter topher - Antibiotic Education topher - Prescription Opioid Use [facility] Prescriptions: - Zofran 4 mg Oral Tablet - take 1 tablet by ORAL route every 12 hours As needed; 20 tablet; Refills: 0, [facility] Product Selection Permitted - Bactrim DS 800-160 mg Oral Tablet - take 1 tablet by ORAL route every 12 hours for 7 days; 14 tablet; Refills: 0, [facility] Product Selection Permitted - levofloxacin 500 mg Oral Tablet - take 1 tablet by ORAL route once daily for 8 days; 8 tablet; Refills: 0, [facility] Product Selection Permitted Signatures: Dispatcher [employer] EDMS John Murray MD MD cha Prokisch, Amanda RN RN ap3 Gardenia Downs RN RN vg1 Roger Bardales DO DO ms3 Corrections: (The following items were deleted from the chart) 09:48 09:05 Chest For PE Angio+CT.RAD.BRZ ordered. EDMS EDMS 09:48 09:05 Abdomen Pelvis W Con+CT.RAD.BRZ ordered. EDMS EDMS
[2021-07-02] MEDS ORDERED: CEFTRIAXONE 1000 MG/VIAL ONE (10:30)
[2021-07-02] MEDS ORDERED: NA CHLORIDE 0.9% 100 ML IV ONE (10:30)
[2021-07-02] MEDS ORDERED: levoFLOXacin 750 MG TAB ONE (10:31)
--- NOTE | 2021-07-02 10:45 | RAD REPORT ---
EXAM DESCRIPTION: Olga Single View07/02/2021 10:03 am CLINICAL HISTORY: Chest pain COMPARISON: 2019 FINDINGS: The lungs appear clear of acute infiltrate. The heart is normal size IMPRESSION: No acute abnormalities displayed
[2021-07-02 11:13] VITALS: TEMP 99.4
[2021-07-02 11:16] VITALS: BP 99/60; O2SAT 98
== END 2021-07-02 11:05 | disposition home or self-care (01) ==
LOC: ER 08:15
DX: N39.0 Urinary tract infection, site not specified (principal); F17.210 Nicotine dependence, cigarettes, uncomplicated
CPT/HCPCS: 87088; 85025; 87086; 80048; 36415; 83735; 81025; 85610; 80076; 81003; 84484; 83690; 83880; 71275; 74175; 71045; Q9967; J7030; J2405; 93005; 96361; 96365; 96375; 99285

== ENCOUNTER 2022-04-20 08:53 | Observation (INO) | payer OTHER ==
[2022-04-20] MEDS ORDERED: MORPHINE 4 MG/ML SYR ONE (09:57)
[2022-04-20] MEDS ORDERED: ONDANSETRON 4 MG/2 ML VIAL ONE ×2 (09:57→14:20)
[2022-04-20 10:06] LABS: Absolute Lymphocytes (CBC) 1.8 K/uL (0.7-4.9); Hematocrit 38.5 % (36.0-45.0); MCV 88.5 fL (80-100); MPV 8.9 fL (7.6-11.3); RBC Red Blood Cell Count 4.35 M/uL (3.86-4.86)
--- NOTE | 2022-04-20 11:41 | RAD REPORT ---
EXAM DESCRIPTION: CT - Pelvis W/Cont - 04/20/2022 11:17 am CLINICAL HISTORY: evaluate abscess Pelvic pain, abscess COMPARISON: Pelvis W/Cont dated 01/08/2021 TECHNIQUE: All CT scans are performed using dose optimization technique as appropriate and may inclu de automated exposure control or mA/KV adjustment according to patient size. FINDINGS: There is a 3.0 x 2.2 cm thick-walled fluid collection with surrounding inflammation the fa t of the perineum. This collection is located along the posterior margin of the right labia majora. L ess well-defined collection of fluid is seen along the right labia majora measuring 4.5 x 1.4 cm. The findings likely represent infection/ abscess. There is no evidence of extension of the fluid collection into the pelvis. No soft tissue mass or hem atoma. Mildly prominent bilateral inguinal lymph nodes, presumably reactive. IMPRESSION: Fluid is noted along the right labia majora extending to a posteriorly located 3 cm absc ess collection with surrounding fat in the right perineum region.
--- NOTE | 2022-04-20 11:54 | EDPHYS ---
Physician Documentation [facility] Name: Radha Mcintosh Age: 46 yrs Sex: Female : 1975 Arrival Date: 04/20/2022 Time: 08:56 Bed 12 Private MD: [facility] ED Physician John Murray HPI: 04/20 11:59 This 46 yrs old Female presents to ER via Ambulatory with complaints of Vaginal abscess.kb 11:59 The patient presents with an abscess of the right labia majora and perineum. kb Description: erythematous, swollen, warm. Onset: The symptoms/episode began/occurred 1 week(s) ago. Possible cause(s): unknown. Associated signs and symptoms: Pertinent positives: erythema, swelling. Modifying factors: the symptoms are alleviated by nothing, the symptoms are aggravated by movement, pressure, squeezing the lesion and expressing the contents, touching. Severity of symptoms: At their worst the symptoms were moderate, in the emergency department the symptoms are unchanged. The patient has not experienced similar symptoms in the past. The patient has not recently seen a physician. Pt reports swelling and pain to perineal area. 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 - Social history:: Smoking status: Patient denies any tobacco usage or history of. Patient/guardian denies using alcohol, street drugs. ROS: 11:55 Constitutional: Negative for fever, chills, and weight loss. kb 11:55 Skin: Positive for abscess, of the perineum and right labia majora. 11:55 All other systems are negative. Exam: 11:55 Constitutional: This is a well developed, well nourished patient who is awake, alert, kb and in no acute distress. Head/Face: Normocephalic, atraumatic. ENT: Moist Mucous membranes Cardiovascular: Regular rate and rhythm with a normal S1 and S2. No gallops, murmurs, or rubs. No pulse deficits. Respiratory: Respirations even and unlabored. No increased work of breathing. Talking in full sentences Abdomen/GI: Soft, non-tender. No distention MS/ Extremity: Pulses equal, no cyanosis. Neurovascular intact. Full, normal range of motion. Neuro: Awake and alert, GCS 15, oriented to person, place, time, and situation. Moves all extremities. Normal gait. Psych: Awake, alert, with orientation to person, place and time. Behavior, mood, and affect are within normal limits. 11:55 Skin: abscess, that is moderate sized, of the right labia majora and perineum, with induration. Vital Signs: 09:13 Weight 79.38 kg; Height 5 ft. 6 in. (167.64 cm); Pain 8/10; ld1 09:14 Pulse 74; Resp 22; Pulse Ox 94% ; jl7 10:03 BP 100 / 69; Pulse 74; Resp 15; Pulse Ox 98% ; Pain 9/10; jl7 10:03 Temp 97.9; jl7 12:18 BP 100 / 72; Pulse 60; Resp 18; Pulse Ox 100% on R/A; em6 13:20 BP 98 / 74; Pulse 64; Resp 18; Pulse Ox 100% ; em6 09:13 Body Mass Index 28.25 (79.38 kg, 167.64 cm) ld1 MDM: 09:15 Patient medically screened. kb 11:53 Data reviewed: vital signs, nurses notes. Data interpreted: Pulse oximetry: on room air kb is 98 %. Interpretation: normal. Counseling: I had a detailed discussion with the patient and/or guardian regarding: the historical points, exam findings, and any diagnostic results supporting the discharge/admit diagnosis, lab results, radiology results, the need for further work-up and treatment in the hospital. Physician consultation: Mateo Denson MD was contacted at 11:53, regarding consult, patient's condition, and will see patient. 11:53 Physician consultation: Anthony Casas MD was contacted at 11:53, regarding admission, kb to the medical/surgical unit. patient's condition, and will see patient in ED. 04/20 09:29 Order name: CBC with Diff; Complete Time: 10:10 kb 04/20 09:29 Order name: Basic Metabolic Panel; Complete Time: 10:24 kb 04/20 09:29 Order name: CT Pelvis w cont; Complete Time: 11:42 kb 04/20 11:53 Order name: SARS RAPID; Complete Time: 13:24 kb 04/20 12:17 Order name: CBC with Automated Diff EDMS 04/20 12:17 Order name: CBC with Automated Diff EDMS 04/20 09:29 Order name: IV Start; Complete Time: 09:46 kb 04/20 12:17 Order name: CONS Physician Consult; Complete Time: 12:18 EDMS 04/20 12:17 Order name: NPO; Complete Time: 12:18 EDMS Administered Medications: 10:05 Drug: morphine 4 mg Route: IVP; Infused Over: 4 mins; Site: right forearm; jl7 11:45 Follow up: Response: No adverse reaction; RASS: Alert and Calm (0) em6 10:05 Drug: Zofran (Ondansetron) 4 mg Route: IVP; Site: right forearm; jl7 11:45 Follow up: Response: No adverse reaction em6 12:17 Drug: Cipro (ciprofloxacin) 400 mg Volume: 200 ml; Route: IVPB; Infused Over: 60 mins; em6 Site: right forearm; 13:26 Follow up: Response: No adverse reaction; IV Status: Completed infusion; IV Intake: em6 200ml 12:18 Drug: fentaNYL (PF) 50 mcg Route: IVP; Site: right forearm; em6 13:18 Follow up: Response: No adverse reaction; RASS: Alert and Calm (0) em6 13:29 Drug: Flagyl (metroNIDAZOLE) 500 mg Volume: 100 ml; Route: IVPB; Rate: 200 ml/hr; em6 Infused Over: 30 mins; Site: right forearm; 13:30 Follow up: IV Status: Infusion continued upon admission em6 Disposition Summary: 04/20/22 11:54 Hospitalization Ordered Hospitalization Status: Observation kb Provider: Anthony Casas Location: Telemetry/MedSurg (observation) kb Condition: Stable kb Problem: new kb Symptoms: are unchanged kb Bed/Room Type: Standard Room Assignment: 212(04/20/22 13:19) jl7 Diagnosis - 3cm abscess right perinuem kb Forms: - Medication Reconciliation Form kb - SBAR form kb Signatures: Dispatcher [employer] EDBrenda Camp FNP-C FNP-[place] RN RN jl7 Luli Garcias RN RN ld1 Sofía Denson RN RN em6 Corrections: (The following items were deleted from the chart) 13: 11:54 kb jl7
--- NOTE | 2022-04-20 11:54 | ER ---
Nurse's Notes [facility] Name: Radha Mcintosh Age: 46 yrs Sex: Female : 1975 Arrival Date: 04/20/2022 Time: 08:56 Bed 12 Private MD: Soto Landeros Diagnosis: 3cm abscess right perinuem Presentation: 04/20 09:13 Chief complaint: Patient states: abscess to vagina X 1 week. Pt reports "soft ball ld1 size, painful.". Coronavirus screen: At this time, the client does not indicate any symptoms associated with coronavirus-19. Ebola Screen: No symptoms or risks identified at this time. Initial Sepsis Screen: Does the patient meet any 2 criteria? No. Patient's initial sepsis screen is negative. Does the patient have a suspected source of infection? No. Patient's initial sepsis screen is negative. Risk Assessment: Do you want to hurt yourself or someone else? Patient reports no desire to harm self or others. Onset of symptoms was April 20, 2022. 09:13 Method Of Arrival: Ambulatory ld1 09:13 Acuity: LENORE 4 ld1 Triage Assessment: 09:14 General: Appears in no apparent distress. uncomfortable, Behavior is calm, cooperative, ld1 appropriate for age. Pain: Complains of pain in groin Pain does not radiate. Pain currently is 10 out of 10 on a pain scale. Quality of pain is described as throbbing. EENT: No signs and/or symptoms were reported regarding the EENT system. Neuro: Level of Consciousness is awake, alert, obeys commands, Oriented to person, place, time, situation, Recreational Facilities Motel Manager are equal bilaterally. Cardiovascular: Capillary refill < 3 seconds Patient's skin is warm and dry. Respiratory: Airway is patent Respiratory effort is even, unlabored. GI: Abdomen is flat, non-distended. : Reports pain. Derm: Abscess located on pelvis. 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 - Social history:: Smoking status: Patient denies any tobacco usage or history of. Patient/guardian denies using alcohol, street drugs. Screenin:21 [facility] ED Fall Risk Assessment (Adult) History of falling in the last 3 months, ld1 including since admission No falls in past 3 months (0 pts) Confusion or Disorientation No (0 pts) Intoxicated or Sedated No (0 pts) Impaired Gait No (0 pts) Mobility Assist Device Used No (0 pt) Altered Elimination No (0 pt) Score/Fall Risk Level 0 - 2 = Low Risk Oriented to surroundings, Maintained a safe environment. Abuse screen: Denies threats or abuse. Denies injuries from another. Nutritional screening: No deficits noted. Tuberculosis screening: No symptoms or risk factors identified. Assessment: 09:21 Reassessment: Patient is alert, oriented x 3, equal unlabored respirations, skin ld1 warm/dry/pink. See triage assessment. 12:18 Reassessment: provider notified of pain. new order given. General: Appears in no em6 apparent distress. Behavior is cooperative. Pain: Complains of pain in right labia majora and perineum and pelvis and groin Pain does not radiate. Pain currently is 8 out of 10 on a pain scale. Neuro: Level of Consciousness is awake, alert, obeys commands, Oriented to person, place, time, situation. Cardiovascular: Patient's skin is warm and dry. Respiratory: Airway is patent Respiratory effort is even, unlabored, Respiratory pattern is regular, symmetrical. GI: Abdomen is non-distended, Bowel sounds present X 4 quads. Abd is soft and non tender X 4 quads. : No signs and/or symptoms were reported regarding the genitourinary system. EENT: No signs and/or symptoms were reported regarding the EENT system. Derm: No signs and/or symptoms reported regarding the dermatologic system. Musculoskeletal: Circulation, motion, and sensation intact. Range of motion: intact in all extremities. 13:20 Reassessment: Patient appears in no apparent distress at this time. No changes from em6 previously documented assessment. Patient and/or family updated on plan of care and expected duration. Pain level reassessed. Patient is alert, oriented x 3, equal unlabored respirations, skin warm/dry/pink. Vital Signs: 09:13 Weight 79.38 kg; Height 5 ft. 6 in. (167.64 cm); Pain 8/10; ld1 09:14 Pulse 74; Resp 22; Pulse Ox 94% ; jl7 10:03 BP 100 / 69; Pulse 74; Resp 15; Pulse Ox 98% ; Pain 9/10; jl7 10:03 Temp 97.9; jl7 12:18 BP 100 / 72; Pulse 60; Resp 18; Pulse Ox 100% on R/A; em6 13:20 BP 98 / 74; Pulse 64; Resp 18; Pulse Ox 100% ; em6 09:13 Body Mass Index 28.25 (79.38 kg, 167.64 cm) ld1 ED Course: 08:56 Patient arrived in ED. mr 08:56 Soto Landeros DO is Private Physician. mr 09:00 Brenda Snowden FNP-C [facility]. kb 09:00 John Murray MD is Attending Physician. kb 09:14 Triage completed. ld1 09:14 Arm band placed on right wrist. ld1 09:20 Luli Garcias, SHEN is Primary Nurse. ld1 09:21 Patient has correct armband on for positive identification. Placed in gown. Bed in low ld1 position. Call light in reach. Side rails up X2. Pulse ox on. NIBP on. Door closed. Noise minimized. Warm blanket given. 09:46 Initial lab(s) drawn, by me, sent to lab. Inserted saline lock: 22 gauge in right jl7 forearm, using aseptic technique. Blood collected. 11:19 CT Pelvis w cont In Process Unspecified. EDMS 11:54 Anthony Casas MD is Hospitalizing Provider. kb 12:23 SARS RAPID Sent. em6 13:30 No provider procedures requiring assistance completed. Patient admitted, IV remains in em6 place. Administered Medications: 10:05 Drug: morphine 4 mg Route: IVP; Infused Over: 4 mins; Site: right forearm; jl7 11:45 Follow up: Response: No adverse reaction; RASS: Alert and Calm (0) em6 10:05 Drug: Zofran (Ondansetron) 4 mg Route: IVP; Site: right forearm; jl7 11:45 Follow up: Response: No adverse reaction em6 12:17 Drug: Cipro (ciprofloxacin) 400 mg Volume: 200 ml; Route: IVPB; Infused Over: 60 mins; em6 Site: right forearm; 13:26 Follow up: Response: No adverse reaction; IV Status: Completed infusion; IV Intake: em6 200ml 12:18 Drug: fentaNYL (PF) 50 mcg Route: IVP; Site: right forearm; em6 13:18 Follow up: Response: No adverse reaction; RASS: Alert and Calm (0) em6 13:29 Drug: Flagyl (metroNIDAZOLE) 500 mg Volume: 100 ml; Route: IVPB; Rate: 200 ml/hr; em6 Infused Over: 30 mins; Site: right forearm; 13:30 Follow up: IV Status: Infusion continued upon admission em6 Medication: 09:21 VIS not applicable for this client. ld1 Intake: 13:26 IV: 200ml; Total: 200ml. em6 Outcome: 11:54 Decision to Hospitalize by Provider. kb 13:30 Admitted to accompanied by nurse, via wheelchair, with chart. em6 13:30 Condition: stable 13:30 Instructed on the need for admit, Demonstrated understanding of instructions. 13:41 Patient left the ED. em6 Signatures: Dispatcher [employer] EDMS Brenda Snowden, LILLY FAMILY NURSE PRACTITIONER-Jo Douglass Jahala RN RN [id number] Luli Garcias RN RN ld1 Sofía Denson, SHEN RN em6
[2022-04-20] MEDS ORDERED: FENTANYL CITR 100 MCG/2 ML ONE ×2 (12:07→14:19)
[2022-04-20] MEDS ORDERED: CIPROFLOXACIN 400mg IV 400 MG/200 ML BAG IV ONE (12:08)
[2022-04-20] MEDS ORDERED: METRONIDAZOLE 500mg IVPB 500 MG/100 ML BAG IV ONE (12:08)
[2022-04-20] MEDS ORDERED: MORPHINE 2 MG/ML SYR IV PRN (12:13)
[2022-04-20] MEDS ORDERED: ONDANSETRON 4 MG/2 ML VIAL IV PRN (12:13)
[2022-04-20 12:44] LABS: SARS-CoV-2 Antigen Rapid Res Negative (Negative)
[2022-04-20] MEDS ORDERED: MORPHINE 2 MG/ML SYR ONE (13:18)
[2022-04-20] MEDS ORDERED: Ringers Lactate 1,000 ML IV ONE (13:38)
[2022-04-20] MEDS ORDERED: dexAMETHasone 4 MG/ML VIAL ONE (14:19)
[2022-04-20] MEDS ORDERED: propofoL 200 MG/20 ML VIAL IV ONE (14:19)
[2022-04-20] MEDS ORDERED: MIDAZOLAM HCL 2 MG/2 ML INJ ONE (14:19)
[2022-04-20] MEDS ORDERED: LIDOCAINE 1% MPF 5 ML VIAL ONE (14:19)
[2022-04-20] MEDS ORDERED: KETOROLAC 30 MG/ML INJ ONE (14:20)
--- NOTE | 2022-04-20 14:27 | CON ---
Date of Consultation: 04/20/2022 Diagnosis: Perineal abscess. History Of Present Illness: This is the case of a 46-year-old patient, who comes to us with perineal tenderness, bulging and is getting worse, so she came to the ER and had a CAT scan done and shows a perineal abscess. She has something similar several years ago, but in that case with a perianal absc ess done by another doctor and she has to do dressing changes. Since then, she has been doing okay. She denies any trauma, any vaginal discharge, any dysuria, hematuria, hematochezia, or melena. Kannan es any recent traveling out of the country. Denies any family member sick at home. Review of Systems: Ten points otherwise unremarkable. Past Medical History: Includes anxiety, bipolar disorder. Past Surgical History: I and D of perianal abscess. Allergies: NONE. Family History: Noncontributory. Social History: She does not smoke. She does not drink alcohol. Physical Examination: General: The patient is awake, alert. HEENT: Pupils are equal and reactive. Anicteric. Neck: Supple. Chest: Clear. Heart: S1, S2. Abdomen: Soft and depressible. No guarding or rebound. No peritoneal signs. Genitalia: Perianal area and perineum shows a perineal abscess, mostly at the base of the external g enitalia and part of the perineum. Perianal area seems not to be involved. Fluctuance present consi stent with an abscess. Extremities: Good capillary refill. Laboratory Data: Blood work shows WBC count of 7.6 with hemoglobin of 13 and platelets of 213. Pota ssium 4.0. CAT scan of the pelvis interpreted by Dr. Quesada as fluid is noted along the right labia ma jora extending to the posteriorly located 3 cm abscess collection, surrounding fat on the right perin eum. Assessment: This is a 46-year-old patient with perineal abscess. The benefits, alternatives, and ri sks of incision and drainage were explained, which include, but not limited to infection, bleeding, d amage to adjacent structures, anesthesia complication, recurrence, IA and even . She also under stands this may not relieve any symptoms. She might need more than one surgical intervention. She m ay need wound care. She was advised the importance in the future to follow with her rn hemo dialysis. BENITO/FIOR Voice ID: [id number] Report ID: [id number]
--- NOTE | 2022-04-20 15:20 | P.HP ---
Certification for Inpatient Patient admitted to: Observation With expected LOS: <2 Midnights Practitioner: I am a practitioner with admitting privileges, knowledge of patient current condition, hospital course, and medical plan of care. Services: Services provided to patient in accordance with Admission requirements found in Title 42 Section 412.3 of the Code of Federal Regulations Patient History Date of Service: 04/20/22 Reason for admission: Perineal abscess History of Present Illness: Patient is 46 years of age has been complaining of pain in her region of buttocks perineal area was admitted with perineal abscess the right side of the buttock had a problem on the left side before he did undergo incision and drainage obvious precipitating factor she started having significant amount of pain and it appeared in the emergency room Allergies No Known Allergies Allergy (Unverified 01/08/21 15:04) Home Medications: NK [No Home Meds] 01/08/21 - Past Medical/Surgical History -: History of anxiety Review of Systems 10-point ROS is otherwise unremarkable Physical Examination - Vital Signs Temperature: 97.9 F Blood Pressure: 98/74 Pulse: 64 Respirations: 18 - Physical Exam General: Alert, Oriented x3 Neck: Supple Respiratory: Clear to auscultation bilaterally Gastrointestinal: Normal bowel sounds, Other (There appears to be a perineal abscess in the perineal region extending into the right buttock) - Studies Laboratory Data (last 24 hrs) 04/20/22 09:43: Sodium 138, Potassium 4.0, BUN 8, Creatinine 0.81, Glucose 95 04/20/22 09:43: WBC 7.60, Hgb 13.0, Hct 38.5, Plt Count 213 Assessment and Plan - Problems (Diagnosis) (1) Abscess of deep perineal space Current Visit: Yes Status: Acute Plan: Patient is 46 years of age admitted with perineal abscess seen by Dr. Denson scheduled for incision and drainage out on IV antibiotics Cipro and Flagyl labs reviewed white count is normal vital signs are stable. CT scan finding : Fluid is noted along the right labia majora extending to a posteriorly located 3 cm abscess collection with surrounding fat in the right perineum region. Discharge Plan: Home Plan to discharge in: 24 Hours - Advance Directives Does patient have a Living Will: No Does patient have a Durable POA for Healthcare: No
--- NOTE | 2022-04-20 15:38 | P.BOP ---
Preoperative diagnosis: perineal abscess Postoperative diagnosis: same Primary procedure: I+D perineal abscess 5x4cm Estimated blood loss: <10cc Specimen: pus Findings: as above Anesthesia: General Complications: None Drain(s): Other (iodoform 04/29 ") Transferred to: Recovery Room Condition: Good
[2022-04-20] MEDS ORDERED: MEPERIDINE HCL 25 MG/ML SYR ONE (15:51)
[2022-04-20] MEDS ORDERED: HYDROCODONE/APAP 5/325 MG TAB PO PRN (16:10)
[2022-04-20] MEDS: METRONIDAZOLE 500mg IVPB 500 MG/100 ML BAG IV SCH (16:35)
[2022-04-20 17:06] VITALS: BMI 28.2
--- NOTE | 2022-04-20 17:19 | OP ---
Date of Procedure: 04/20/2022 Surgeon: Mateo Denson MD Preoperative Diagnoses: Perineal abscess. Postoperative Diagnosis: Perineal abscess. Procedure: Incision and drainage of perineal abscess about 5 x 4 cm. Estimated Blood Loss: Less than 10 cc. Specimen: Pus. Findings: Perineal abscess. Multiple loculations going anterior near the genitalia. Anesthesia: General plus local. Packing: Iodoform quarter of an inch. Indication: This is the case of a female, who comes to us with a perineal abscess. Benefits, altern atives, and risks of drainage were fully explained which include, but not limited to, infection, blee ding, damage to adjacent structures, anesthesia complication, recurrence, SD, and even . She al so understands this may not relieve any symptoms. She might need more than one surgical intervention and she may require wound care. She signed a consent. Description Of Procedure: Patient brought to the operating room, placed in supine position. Anesthe january was done without complication. The patient was placed in lithotomy position with proper protecti on. A time-out was called. After that, we made an incision over the area of the fluctuance and inde ed we have pus under pressure. We made an incision in that area and then proceeded to with blunt dis section, identified different tunnels and loculations present that were all explored. Area was irrig ated after culture was done. Hemostasis was obtained. Local anesthesia was applied, and then after that, we packed the area with quarter of an inch iodoform. Patient tolerated the procedure well. Patient on her way to recovery in stable condition. BENITO/FIOR Voice ID: [id number] Report ID: [id number]
[2022-04-20] MEDS: CIPROFLOXACIN 400mg IV 400 MG/200 ML BAG IV SCH (20:45)
[2022-04-20] MEDS ORDERED: QUETIAPINE 25 MG TAB PO SCH (21:26)
--- NOTE | 2022-04-21 00:21 | P.PN ---
Subjective Date of Service: 04/21/22 Chief Complaint: Perineal abscess Subjective: Improving (S/P incision and drainage of perineal abscess, patient reports little pain, feeling much better.) Review of Systems Unremarkable Physical Examination - Vital Signs Temperature: 97.9 F Blood Pressure: 104/64 Pulse: 56 Respirations: 18 Pulse Ox (%): 95 - Physical Exam General: Alert, In no apparent distress, Oriented x3 HEENT: Atraumatic, PERRLA, EOMI Neck: Supple, JVD not distended Respiratory: Clear to auscultation bilaterally, Normal air movement Cardiovascular: Regular rate/rhythm, Normal S1 S2 Capillary refill: <2 Seconds Gastrointestinal: Normal bowel sounds, No tenderness Musculoskeletal: No tenderness Integumentary: No rashes Neurological: Normal speech, Normal tone, Normal affect - Studies Laboratory Data (last 24 hrs) 04/20/22 09:43: Sodium 138, Potassium 4.0, BUN 8, Creatinine 0.81, Glucose 95 04/20/22 09:43: WBC 7.60, Hgb 13.0, Hct 38.5, Plt Count 213 Medications List Reviewed: Yes Assessment And Plan - Plan Assessment: Perineal abscess Plan: Perineal abscess: S/P incision and drainage today with general surgery. Continue antibiotics. Patient reports pain is well under control. Will obtain A1c to for possible underlying diabetes as this is her second abscess last 1 year in the groin/perineal area. Possible discharge in the next 24 to 48 hours. DVT PPX: Lovenox Code status: Full Discharge Plan: Home Plan to discharge in: 24 Hours - Code Status/Comfort Care Code Status Assessed: Yes (Full code) Critical Care: No Time Spent Managing PTS Care (In Minutes): 20
[2022-04-21] MEDS: METRONIDAZOLE 500mg IVPB 500 MG/100 ML BAG IV SCH ×2 (00:57→09:00)
[2022-04-21 04:09] LABS: Absolute Lymphocytes (CBC) 1.4 K/uL (0.7-4.9); Hematocrit 34.3 % (36.0-45.0); Lymphocytes % 11.5 % (15.3-44.8); MCV 89.6 fL (80-100); MPV 8.7 fL (7.6-11.3); RBC Red Blood Cell Count 3.83 M/uL (3.86-4.86)
[2022-04-21 08:45] VITALS: BP 99/59; TEMP 97.1
[2022-04-21] MEDS ORDERED: BUPROPION HCL XL 150 MG TAB PO SCH (09:00)
[2022-04-21] MEDS: CIPROFLOXACIN 400mg IV 400 MG/200 ML BAG IV SCH (09:00)
--- NOTE | 2022-04-21 10:38 | P.DS ---
Admission Date: 04/20/22 Discharge Date: 04/21/22 Disposition: ROUTINE DISCHARGE Discharge Condition: FAIR Reason for Admission: Perineal abscess Brief History of Present Illness: 46 years old woman presented to the emergency department complaining of pain in her buttocks andperineal area. Imaging suggested perineal abscess the right side of the buttock. on the left side before he did undergo incision and drainage obvious precipitating factor she started having significant amount of pain and it appeared in the emergency room Hospital Course: Patient admitted to the medical floor and started on broad-spectrum antibiotics- IV ciprofloxacin and Flagyl. Patient seen by general surgery and she underwent incision and drainage. Deep tissue wound cultures pending. Wound dressed and packed. Patient deemed stable for discharge by general surgery-Dr. Denson. She is prescribed oral Cipro and Flagyl to continue treatment for abscess. Patient will follow up with Dr. Denson in the wound care clinic within a week. Vital Signs/Physical Exam: Temp Pulse Resp BP Pulse Ox 97.1 F 59 16 99/59 L 96 04/21/22 08:00 04/21/22 08:00 04/21/22 08:00 04/21/22 08:00 04/21/22 08:00 General: Alert, In no apparent distress, Oriented x3 HEENT: Mucous membr. moist/pink Neck: JVD not distended Respiratory: Clear to auscultation bilaterally, Normal air movement Cardiovascular: No edema, Regular rate/rhythm, Normal S1 S2, No murmurs Gastrointestinal: Soft and benign, Non-distended, No tenderness Musculoskeletal: No swelling Integumentary: No rashes Neurological: Normal strength at 5/5 x4 extr Laboratory Data at Discharge: WBC 12.00 K/uL (4.3-10.9) H 04/21/22 03:55 Hgb 11.5 g/dL (12.0-15.0) L D 04/21/22 03:55 Hct 34.3 % (36.0-45.0) L 04/21/22 03:55 Plt Count 203 K/uL (152-406) 04/21/22 03:55 Sodium 138 mmol/L (136-145) 04/20/22 09:43 Potassium 4.0 mmol/L (3.5-5.1) 04/20/22 09:43 BUN 8 mg/dL (7-18) 04/20/22 09:43 Creatinine 0.81 mg/dL (0.55-1.02) 04/20/22 09:43 Glucose 95 mg/dL (74-106) 04/20/22 09:43 Home Medications: Bupropion HCl [Wellbutrin Xl] 150 mg PO DAILY 04/20/22 Quetiapine Fumarate [Seroquel] 50 mg PO BEDTIME 04/20/22 Ciprofloxacin HCl [Cipro] 500 mg PO BID #20 tab 04/21/22 Hydrocodone 5/APAP 325 [[place] 5/325*] 1 tab PO Q4H PRN #15 tab 04/21/22 metroNIDAZOLE [Flagyl] 500 mg PO Q8H #30 tab 04/21/22 New Medications: Ciprofloxacin HCl [Cipro] 500 mg PO BID #20 tab metroNIDAZOLE [Flagyl] 500 mg PO Q8H #30 tab Hydrocodone 5/APAP 325 [[place] 5/325*] 1 tab PO Q4H PRN #15 tab PRN Reason: Pain Scale 5-7 (Moderate) Followup: Soto Landeros, [Primary Care Provider] - 1 Week (Please call to schedule an appointment. ) Mateo Denson MD [ACTIVE - CAN ADMIT] - 1 Week Time spent managing pt's care (in minutes): 36
[2022-04-21 10:41] VITALS: O2SAT 96
== END 2022-04-21 10:30 | disposition home or self-care (01) ==
LOC: ER 08:53 → ERHOLD 12:14 → 2ND 15:08
PROVIDERS: ADMIT Internal Medicine Sleep Medicine; ATTEND Internal Medicine
PROC: 0W9N0ZZ Drainage of Female Perineum, Open Approach (ICD-10-PCS; principal; 2022-04-20 14:15)
DX: L02.215 Cutaneous abscess of perineum (principal); F41.9 Anxiety disorder, unspecified; F31.9 Bipolar disorder, unspecified; Z20.822 Contact with and (suspected) exposure to COVID-19
CPT/HCPCS: 96365; 87070; 85025 ×2; 80048; 36415; 87205 ×2; 82947; 87075; 83036; 72193; 96375; 99285; 87811; 56405; Q9967; J2704; J1100; J2001; J2250; J3010 ×2; J2270; J7120; J2405 ×2; J0744 ×2; G0378 ×3; 87077; 87186; J2175

== ENCOUNTER 2022-06-01 08:58 | Inpatient (IN) | payer OTHER ==
--- NOTE | 2022-06-01 09:29 | EDPHYS ---
Physician Documentation [facility] Name: Radha Mcintosh Age: 46 yrs Sex: Female : 1975 Arrival Date: 06/01/2022 Time: 09:02 Bed 2 Private MD: ED Physician Glo Landeros HPI: 06/01 09:24 This 46 yrs old Female presents to ER via Unassigned with complaints of Rectal Abscess. snw 09:24 The patient presents to the emergency department with pain in the rectal area, that is snw severe. Onset: The symptoms/episode began/occurred acutely, 1 week(s) ago, and became worse and became persistent. Context: the patient has no known special context relating to the rectal area complaint(s). Associate signs and symptoms: The patient has no apparent associated signs or symptoms. The patient has experienced a previous episode. The patient has not recently seen a physician. Historical: - Allergies: 09:41 No Known Allergies; ld1 - PMHx: 09:41 Anxiety; Bipolar disorder; manic depressive; ld1 - PSHx: 09:41 tubal ligation; ld1 - Immunization history:: Adult Immunizations up to date, Client reports receiving the 2nd dose of the Covid vaccine. - Social history:: Smoking status: Patient denies any tobacco usage or history of. Patient uses street drugs, marijuana, Patient/guardian denies using alcohol. ROS: 09:23 Constitutional: Negative for fever, chills, and weight loss, Eyes: Negative for injury, snw pain, redness, and discharge, ENT: Negative for injury, pain, and discharge, Neck: Negative for injury, pain, and swelling, Cardiovascular: Negative for chest pain, palpitations, and edema, Respiratory: Negative for shortness of breath, cough, wheezing, and pleuritic chest pain, Back: Negative for injury and pain, : Negative for injury, bleeding, discharge, and swelling, MS/Extremity: Negative for injury and deformity, Skin: Negative for injury, rash, and discoloration, Neuro: Negative for headache, weakness, numbness, tingling, and seizure, Psych: Negative for depression, anxiety, suicide ideation, homicidal ideation, and hallucinations. 09:23 Abdomen/GI: Positive for rectal pain. Exam: 09:21 Constitutional: This is a well developed, well nourished patient who is awake, alert, snw and in no acute distress. Head/Face: Normocephalic, atraumatic. Eyes: Pupils equal round and reactive to light, extra-ocular motions intact. Lids and lashes normal. Conjunctiva and sclera are non-icteric and not injected. Cornea within normal limits. Periorbital areas with no swelling, redness, or edema. ENT: Nares patent. No nasal discharge, no septal abnormalities noted. Tympanic membranes are normal and external auditory canals are clear. Oropharynx with no redness, swelling, or masses, exudates, or evidence of obstruction, uvula midline. Mucous membranes moist. Neck: Trachea midline, no thyromegaly or masses palpated, and no cervical lymphadenopathy. Supple, full range of motion without nuchal rigidity, or vertebral point tenderness. No Meningismus. Chest/axilla: Normal chest wall appearance and motion. Nontender with no deformity. No lesions are appreciated. Cardiovascular: Regular rate and rhythm with a normal S1 and S2. No gallops, murmurs, or rubs. Normal PMI, no JVD. No pulse deficits. Respiratory: Lungs have equal breath sounds bilaterally, clear to auscultation and percussion. No rales, rhonchi or wheezes noted. No increased work of breathing, no retractions or nasal flaring. Back: No spinal tenderness. No costovertebral tenderness. Full range of motion. Skin: Warm, dry with normal turgor. Normal color with no rashes, no lesions, and no evidence of cellulitis. MS/ Extremity: Pulses equal, no cyanosis. Neurovascular intact. Full, normal range of motion. Neuro: Awake and alert, GCS 15, oriented to person, place, time, and situation. Cranial nerves II-XII grossly intact. Motor strength 5/5 in all extremities. Sensory grossly intact. Cerebellar exam normal. Normal gait. Psych: Awake, alert, with orientation to person, place and time. Behavior, mood, and affect are within normal limits. 09:21 Abdomen/GI: Inspection: abdomen appears normal, Bowel sounds: normal, Rectal exam: swelling, tenderness, that is moderate, that is severe, left trista rectal abscess with rectal extension. Vital Signs: 09:39 Pulse 79; Resp 23; Temp 98.4(O); Pulse Ox 99% on R/A; Weight 74.84 kg; Height 5 ft. 2 ld1 in. (157.48 cm); Pain 9/10; 09:41 BP 95 / 74; ld1 10:05 BP 97 / 62; Pulse 72; Resp 21; Pulse Ox 97% on R/A; ld1 11:27 BP 85 / 60; Pulse 72; Resp 17; Pulse Ox 100% on R/A; ld1 12:05 BP 99 / 73; Pulse 62; Resp 17; Pulse Ox 100% on R/A; Pain 8/10; ld1 14:34 BP 82 / 54; Pulse 72; Resp 18; Pulse Ox 99% on R/A; ld1 09:39 Body Mass Index 30.18 (74.84 kg, 157.48 cm) ld1 MDM: 09:12 Patient medically screened. snw 09:22 Differential diagnosis: hemorrhoids, fissure, abscess. Data reviewed: vital signs, snw nurses notes. Management of patient was discussed with the following: Dr. Bauer - in department for assessment. Counseling: I had a detailed discussion with the patient and/or guardian regarding: the historical points, exam findings, and any diagnostic results supporting the discharge/admit diagnosis, the need for further work-up and treatment in the hospital. 12:02 ED course: pt states fentanyl did not help pain, BP low 90s, pt states this is her snw norm. Will give bolus of IVF and give Morphine. 12:18 ED course: Pt was given fentanyl 50 mcg so Morphine order cancelled. snw 06/01 09:20 Order name: CBC with Diff; Complete Time: 09:57 snw 06/01 09:20 Order name: Chem 7; Complete Time: 10:05 snw 06/01 09:26 Order name: CT Abd/Pelvis - IV Contrast Only; Complete Time: 11:00 snw 06/01 09:26 Order name: Blood Culture Adult (2) snw 06/01 09:26 Order name: Test, Serum; Complete Time: 10:36 snw 06/01 09:38 Order name: SARS RAPID; Complete Time: 10:13 ld1 06/01 09:20 Order name: NPO; Complete Time: 09:23 snw 06/01 09:21 Order name: Surgical Consent; Complete Time: 10:04 snw Administered Medications: 09:56 Drug: NS 0.9% 1000 ml Route: IV; Rate: 1 bolus; Site: left antecubital; ld1 09:56 Drug: Zosyn (piperacillin-tazobactam) 3.375 grams Route: IVPB; Infused Over: 60 mins; ld1 Site: left antecubital; 12:20 Follow up: Response: No adverse reaction; IV Status: Completed infusion ld1 10:04 Drug: fentaNYL (PF) 50 mcg Route: IVP; Site: right antecubital; ld1 11:00 Follow up: Response: No adverse reaction; Pain is unchanged, physician notified ld1 12:05 Drug: fentaNYL (PF) 50 mcg Route: IVP; Site: right antecubital; ld1 12:21 Follow up: Response: No adverse reaction ld1 12:18 CANCELLED (Physician Discretion): morphine 2 mg IVP once over 4 mins snw 13:37 Drug: morphine 2 mg Route: IVP; Infused Over: 4 mins; Site: right antecubital; ld1 Disposition Summary: 06/01/22 09:28 Hospitalization Ordered Hospitalization Status: Inpatient Admission snw Provider: Ton Bauer snlyle Location: Telemetry/MedSurg (Inpatient) snw Condition: Stable snw Problem: new snw Symptoms: are unchanged snw Bed/Room Type: Standard snw Room Assignment: snw Diagnosis - Trista anal abscess snw Forms: - Medication Reconciliation Form snw - SBAR form snw Signatures: Dispatcher [employer] EDMakenzie Warner FNP-C QUALITY ASSURANCE MONITOR-Csnw Luli Garcias RN RN ld1 Corrections: (The following items were deleted from the chart) 09:29 09:21 Abdomen/GI: Inspection: abdomen appears normal, Bowel sounds: normal, Rectal snw exam: swelling, tenderness, that is moderate, that is severe, trista rectal abscess with rectal extension, snw 12:18 12:02 morphine 2 mg IVP once over 4 mins ordered. snw snw
[2022-06-01] MEDS ORDERED: NA CHLORIDE 0.9% 100 ML ONE (09:39)
[2022-06-01] MEDS ORDERED: NA CHLORIDE 0.9% 1,000 ML ONE (09:39)
[2022-06-01] MEDS ORDERED: PIPERACIL/TAZO 3.375 GM VIAL IV ONE (09:39)
[2022-06-01] MEDS ORDERED: FENTANYL CITR 100 MCG/2 ML ONE ×2 (09:39→15:21)
[2022-06-01 09:48] LABS: Absolute Lymphocytes (CBC) 2.2 K/uL (0.7-4.9); Hematocrit 37.6 % (36.0-45.0); Lymphocytes % 19.5 % (15.3-44.8); MCV 89.5 fL (80-100); MPV 7.8 fL (7.6-11.3)
[2022-06-01 10:02] LABS: Potassium 4.3 mmol/L (3.5-5.1)
[2022-06-01 10:09] LABS: SARS-CoV-2 Antigen Rapid Res Positive (Negative)
[2022-06-01] MEDS ORDERED: BUPIVACAINE 0.25% PF 30 ML VIAL ONE ×2 (10:55→15:11)
--- NOTE | 2022-06-01 10:59 | RAD REPORT ---
EXAM DESCRIPTION: CTAbdomen Pelvis W Contrast - 06/01/2022 10:29 am CLINICAL HISTORY: Abdominal pain. rectal pain COMPARISON: No comparisons TECHNIQUE: Biphasic CT imaging of the abdomen and pelvis was performed with 100 ml non-ionic IV cont rast. All CT scans are performed using dose optimization technique as appropriate and may include automated exposure control or mA/KV adjustment according to patient size. FINDINGS: The lung bases are clear. The liver, spleen, pancreas, adrenal glands and kidneys are within normal limits. No bowel obstruction, free air, free fluid or abscess. The appendix is normal. No evidence of signi ficant lymphadenopathy. 30 x 21 mm thick-walled collection right perianal soft tissues likely perirec martina abscess. No suspicious bony findings. IMPRESSION: 30 mm perirectal abscess to the right of the anus.
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
[2022-06-01] MEDS ORDERED: MORPHINE 2 MG/ML SYR ONE (13:35)
--- NOTE | 2022-06-01 14:53 | ER ---
Nurse's Notes [facility] Name: Radha Mcintosh Age: 46 yrs Sex: Female : 1975 Arrival Date: 06/01/2022 Time: 09:02 Bed 2 Private MD: Diagnosis: Trista anal abscess Presentation: 06/01 09:39 Chief complaint: Patient states: Perianal abscess - reports third time this has ld1 happened. Coronavirus screen: At this time, the client does not indicate any symptoms associated with coronavirus-19. Ebola Screen: No symptoms or risks identified at this time. Initial Sepsis Screen: Does the patient meet any 2 criteria? No. Patient's initial sepsis screen is negative. Does the patient have a suspected source of infection? No. Patient's initial sepsis screen is negative. Risk Assessment: Do you want to hurt yourself or someone else? Patient reports no desire to harm self or others. Onset of symptoms was June 01, 2022. 09:39 Method Of Arrival: Ambulatory ld1 09:39 Acuity: LENORE 3 ld1 Triage Assessment: 09:41 General: Appears in no apparent distress. comfortable, Behavior is calm, cooperative, ld1 appropriate for age. Pain: Complains of pain in anus Pain does not radiate. Pain currently is 9 out of 10 on a pain scale. Quality of pain is described as throbbing, Pain began 2-3 days ago. Is continuous. EENT: No signs and/or symptoms were reported regarding the EENT system. Neuro: Level of Consciousness is awake, alert, obeys commands, Oriented to person, place, time, situation. Cardiovascular: Capillary refill < 3 seconds Patient's skin is warm and dry. Rhythm is sinus rhythm. Respiratory: Airway is patent Respiratory effort is even, unlabored. GI: Abdomen is flat, non-distended. : No signs and/or symptoms were reported regarding the genitourinary system. Derm: No signs and/or symptoms reported regarding the dermatologic system. Musculoskeletal: No signs and/or symptoms reported regarding the musculoskeletal system. Historical: - Allergies: 09:41 No Known Allergies; ld1 - PMHx: 09:41 Anxiety; Bipolar disorder; manic depressive; ld1 - PSHx: :41 tubal ligation; ld1 - Immunization history:: Adult Immunizations up to date, Client reports receiving the 2nd dose of the Covid vaccine. - Social history:: Smoking status: Patient denies any tobacco usage or history of. Patient uses street drugs, marijuana, Patient/guardian denies using alcohol. Screenin:42 [facility] ED Fall Risk Assessment (Adult) History of falling in the last 3 months, ld1 including since admission No falls in past 3 months (0 pts). Abuse screen: Denies threats or abuse. Denies injuries from another. Nutritional screening: No deficits noted. Tuberculosis screening: No symptoms or risk factors identified. Assessment: 09:42 Reassessment: See triage assessment. ld1 Vital Signs: 09:39 Pulse 79; Resp 23; Temp 98.4(O); Pulse Ox 99% on R/A; Weight 74.84 kg; Height 5 ft. 2 ld1 in. (157.48 cm); Pain 9/10; 09:41 BP 95 / 74; ld1 10:05 BP 97 / 62; Pulse 72; Resp 21; Pulse Ox 97% on R/A; ld1 11:27 BP 85 / 60; Pulse 72; Resp 17; Pulse Ox 100% on R/A; ld1 12:05 BP 99 / 73; Pulse 62; Resp 17; Pulse Ox 100% on R/A; Pain 8/10; ld1 14:34 BP 82 / 54; Pulse 72; Resp 18; Pulse Ox 99% on R/A; ld1 09:39 Body Mass Index 30.18 (74.84 kg, 157.48 cm) ld1 ED Course: 09:02 Patient arrived in ED. rg4 09:06 Makenzie Faulkner FNP-C [facility] snw 09:06 Glo Landeros MD is Attending Physician. snw 09:23 Luli Garcias, SHEN is Primary Nurse. ld1 09:27 Ton Bauer MD is Hospitalizing Provider. snw 09:38 Chem 7 Sent. ld1 09:38 CBC with Diff Sent. ld1 09:38 Inserted saline lock: 20 gauge in left antecubital area, using aseptic technique. Blood ld1 collected. 09:41 Triage completed. ld1 09:41 Arm band placed on right wrist. ld1 09:42 Patient has correct armband on for positive identification. Placed in gown. Bed in low ld1 position. Call light in reach. Side rails up X2. monitor technician on. Pulse ox on. NIBP on. Door closed. Noise minimized. Warm blanket given. :56 SARS RAPID Sent. ld1 09:56 Test, Serum Sent. ld1 10:04 Blood Culture Adult (2) Sent. ld1 10:31 CT Abd/Pelvis - IV Contrast Only In Process Unspecified. EDMS 14:52 No provider procedures requiring assistance completed. Patient admitted, IV remains in ld1 place. Administered Medications: :56 Drug: NS 0.9% 1000 ml Route: IV; Rate: 1 bolus; Site: left antecubital; ld1 09:56 Drug: Zosyn (piperacillin-tazobactam) 3.375 grams Route: IVPB; Infused Over: 60 mins; ld1 Site: left antecubital; 12:20 Follow up: Response: No adverse reaction; IV Status: Completed infusion ld1 10:04 Drug: fentaNYL (PF) 50 mcg Route: IVP; Site: right antecubital; ld1 11:00 Follow up: Response: No adverse reaction; Pain is unchanged, physician notified ld1 12:05 Drug: fentaNYL (PF) 50 mcg Route: IVP; Site: right antecubital; ld1 12:21 Follow up: Response: No adverse reaction ld1 12:18 CANCELLED (Physician Discretion): morphine 2 mg IVP once over 4 mins snw 13:37 Drug: morphine 2 mg Route: IVP; Infused Over: 4 mins; Site: right antecubital; ld1 Medication: 09:42 VIS not applicable for this client. ld1 Outcome: 09:28 Decision to Hospitalize by Provider. snw 14:52 Admitted to OR accompanied by nurse, via wheelchair, with chart. ld1 14:52 Condition: stable 14:52 Instructed on the need for admit. 14:52 Patient left the ED. ld1 Signatures: Dispatcher [employer] Makenzie De Jesus, ROSANA-C MEDICAL TRANSCRIBER-Dede Do rg4 Luli Garcias, SHEN RN ld1
[2022-06-01] MEDS ORDERED: Ringers Lactate 1,000 ML IV ONE (15:02)
[2022-06-01] MEDS ORDERED: METHYLENE BLUE 0.5% 10 ML AMP ONE (15:11)
[2022-06-01] MEDS ORDERED: LIDOCAINE 2% MPF 5 ML VIAL ONE (15:20)
[2022-06-01] MEDS ORDERED: propofoL 200 MG/20 ML VIAL IV ONE (15:20)
[2022-06-01] MEDS ORDERED: KETOROLAC 30 MG/ML INJ ONE (15:21)
[2022-06-01] MEDS ORDERED: dexAMETHasone 10 MG/ML VIAL ONE (15:21)
[2022-06-01] MEDS ORDERED: ONDANSETRON 4 MG/2 ML VIAL ONE (15:21)
--- NOTE | 2022-06-01 16:10 | P.OP ---
Preoperative diagnosis: RIGHT perirectal abscess Postoperative diagnosis: RIGHT perirectal abscess Primary procedure: Exam under anesthesia Secondary procedure: Incision and Drainage of perirectal abscess Anesthesia: GETA + Local Estimated blood loss: <10cc Specimen: cultures Findings: tracking across midline Complications: None Transferred to: Recovery Room Condition: Good
[2022-06-01] MEDS ORDERED: HYDROCODONE/APAP 7.5/325 MG TAB PO PRN (16:13)
[2022-06-01] MEDS: CEFAZOLIN 1 GM in NA CHLORIDE 0.9% 50 ML IVPB SCH ×2 (18:22→23:28)
[2022-06-01] MEDS: MORPHINE 2 MG/ML SYR IV PRN (21:00)
[2022-06-01] MEDS: NICOTINE 7 MG/PAT TD SCH (21:01)
[2022-06-01 22:09] VITALS: O2SAT 96; BMI 30.2
--- NOTE | 2022-06-01 22:26 | P.CNS ---
Date of Consult: 06/01/22 Reason for Consult: Medical mgmt Requesting Physician: Ton Bauer Primary Care Provider: Tigre Chief Complaint: Perirectal abscess History of Present Illness: 46-year-old female with a history of perirectal abscess x2, anxiety/depression, insomnia, tobacco abuse presented to the emergency department for concern for prerectal abscess. On CT she was found to have right-sided perirectal abscess. Patient admitted to the surgical service, started on antibiotics. She had incision and drainage performed today which she tolerated well. Patient is on antibioticsAncef, hospitalist service was consulted for medical management of acute pain, insomnia, depression/anxiety. 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 moist/pink, EOMI, Sclerae nonicteric Neck: Supple, 2+ carotid pulse no bruit, No LAD, Without JVD or thyroid abnormality Respiratory: Clear to auscultation bilaterally, Normal air movement Cardiovascular: Regular rate/rhythm, Normal S1 S2 Gastrointestinal: Normal bowel sounds, No tenderness Musculoskeletal: No tenderness Integumentary: No rashes Neurological: Normal gait, Normal speech, Normal tone, Normal affect Laboratory Data (last 24 hrs) 06/01/22 09:32: Sodium 138, Potassium 4.3, BUN 9, Creatinine 0.77, Glucose 110 H 06/01/22 09:32: WBC 11.20 H, Hgb 12.4, Hct 37.6, Plt Count 262 Conclusions/Impression: Assessment: Recurrent perirectal abscess Anxiety/depression Insomnia Tobacco abuse Plan: Recurrent perirectal abscess: Unclear etiology, patient reports possibly from shaving. This is patient's third perirectal abscess, A1c checked during previous hospitalization was 5.2. Patient denies current use or history of IV drug use, not currently sexually active. Denies history or family history of inflammatory bowel disease. Had incision and drainage today, antibiotics per surgery. As needed pain medications ordered. Recommend close follow-up with PCP in regards to recurrent peritoneal abscess. Anxiety/depression: Continue home medications Insomnia: Continued Seroquel Tobacco abuse: NicoDerm patch in place. DVT PPX: Lovenox Code status: Full Critical Care: No Time Spent Managing Pts care (In Minutes): 25
[2022-06-02] MEDS: MORPHINE 2 MG/ML SYR IV PRN ×3 (01:22→10:46)
--- NOTE | 2022-06-02 01:56 | OP ---
Date of Procedure: 06/01/2022 Surgeon: Becki Bauer MD, Preoperative Diagnosis: Right perirectal abscess. Postoperative Diagnosis: Right perirectal abscess. Procedures Performed: 1.Exam under anesthesia. 2.Incision and drainage of perirectal abscess. Anesthesia: General endotracheal plus local with 0.25% Marcaine. Estimated Blood Loss: 10 cc. Specimens: Culture sent for aerobic and anaerobic speciation. Findings: The perirectal abscess on the right did cross midline through the area of the perineal bod y onto a small punctate opening on the left. Complications: None. The patient was transferred to recovery room in good condition. Procedure In Detail: After informed consent was obtained, the patient was brought to the operating r oom and prepped and draped in the usual sterile fashion. After adequate anesthesia achieved, I injec becki the area on the right buttock with methylene blue in the obvious palpable abscess. Methylene leda e was seen emanating on the left buttock cheek area near the medial aspect of the gluteal cleft. I i nspected the anus at this point, using anoscopy. No obvious methylene blue or fistulous tracts were appreciated into the rectal vault at this point. I therefore opened the abscess at this point using a 15 blade down to subcutaneous tissues. I immediately encountered abscess material. This was cultu red for both aerobic and anaerobic speciation. I opened it in its entirety for approximately 1.5 cm down to the subcutaneous tissues. I then digitized the area and broke up multiloculated abscesses in this area. I palpated and used a lacrimal probe to try to find the connection between the left side . This was not able to be noted and as such, I copiously irrigated the vault cavity and dilated up t he tract of the exit site on the left buttock using a lacrimal probe. I then achieved hemostasis wit h electrocautery in the right buttock abscess cavity. I then irrigated the area once again, there we re no additional hemostatic measures required. I then packed the wound with sterile dressing and cov ered the left buttock wound with same sterile dressing and the patient tolerated the procedure withou t evidence of any complication and transferred to PACU in good condition. All counts were correct at the end of the case. DAIN/FIOR Voice ID: [id number] Report ID: [id number]
[2022-06-02] MEDS: CEFAZOLIN 1 GM in NA CHLORIDE 0.9% 50 ML IVPB SCH ×2 (05:37→11:55)
[2022-06-02] MEDS ORDERED: INFLUENZA VACCINE (for 6+ mo) 0.5 ML DOSE IMVAC ONE (08:00)
[2022-06-02 08:43] VITALS: TEMP 96.8
[2022-06-02] MEDS: NICOTINE 7 MG/PAT TD SCH (08:46)
[2022-06-02 12:43] VITALS: BP 92/62
[2022-06-02] MEDS ORDERED: QUETIAPINE 100MG TAB PO SCH (21:00)
== END 2022-06-02 14:20 | disposition home or self-care (01) | DRG 344 ==
LOC: ER 08:58 → ERHOLD 16:22 → 4TH 17:00
PROVIDERS: ADMIT Surgery; ATTEND Surgery
PROC: 0D9P0ZZ Drainage of Rectum, Open Approach (ICD-10-PCS; principal; 2022-06-01 14:00)
DX: K61.1 Rectal abscess (principal); U07.1 COVID-19; G47.00 Insomnia, unspecified; F41.9 Anxiety disorder, unspecified; F32.A Depression, unspecified; F12.90 Cannabis use, unspecified, uncomplicated; F17.200 Nicotine dependence, unspecified, uncomplicated; Z79.899 Other long term (current) drug therapy; Z98.51 Tubal ligation status
CPT/HCPCS: 36415; 74177; 80048; 84703; 85025; 87040; 87070; 87075; 87077; 87186; 87205; 87811; 96365; 96366; 96375; 99285; J0690; J1100; J2001; J2270; J2405; J2543; J2704; J3010; J7030; J7120; Q9967

== ENCOUNTER 2024-08-29 16:11 | Emergency (ER) | payer SELFPAY ==
[2024-08-29] MEDS ORDERED: HYDROCODONE/APAP 10/325 TAB ONE (18:44)
[2024-08-29] MEDS ORDERED: LIDOCAINE 1% MPF 5 ML VIAL ONE ×2 (18:44→19:48)
[2024-08-29] MEDS ORDERED: FENTANYL CITR 100 MCG/2 ML ONE (19:06)
--- NOTE | 2024-08-29 20:00 | ER ---
Nurse's Notes [facility] Name: Radha Mcintosh Age: 48 yrs Sex: Female : 1975 Arrival Date: 08/29/2024 Time: 16:11 Bed 15 Private MD: Diagnosis: Abscess of Bartholin's gland Presentation: 08/29 16:36 Chief complaint: Patient states: L perineal area abscess for 4 days. + nausea, no known ll1 fever. Coronavirus screen: Client denies travel out of the [place] in the last 14 days. At this time, the client does not indicate any symptoms associated with coronavirus-19. Ebola Screen: Patient denies travel to an Ebola-affected area in the 21 days before illness onset. Initial Sepsis Screen: Does the patient meet any 2 criteria? No. Patient's initial sepsis screen is negative. Does the patient have a suspected source of infection? No. Patient's initial sepsis screen is negative. Risk Assessment: Do you want to hurt yourself or someone else? Patient reports no desire to harm self or others. Onset of symptoms was August 25, 2024. 16:36 Method Of Arrival: Ambulatory ll1 16:36 Acuity: LENORE 3 ll1 Triage Assessment: 16:27 General: Appears uncomfortable, Behavior is calm, cooperative, appropriate for age. ll1 Pain: Complains of pain in vaginal area Quality of pain is described as aching. Derm: Abscess located on L perineal area. Historical: - Allergies: 16:27 No Known Allergies; ll1 - PMHx: 16:27 manic depressive; Bipolar disorder; Anxiety; ll1 - PSHx: 16:27 tubal ligation; ll1 - Immunization history:: Adult Immunizations up to date. - Infectious Disease History:: Denies. - Social history:: Smoking status: unknown. Screenin:32 [facility] ED Fall Risk Assessment (Adult) History of falling in the last 3 months, ha1 including since admission No falls in past 3 months (0 pts) Confusion or Disorientation No (0 pts) Intoxicated or Sedated No (0 pts) Impaired Gait No (0 pts) Mobility Assist Device Used No (0 pt) Altered Elimination No (0 pt) Score/Fall Risk Level 0 - 2 = Low Risk Oriented to surroundings, Maintained a safe environment, Educated pt \T\ family on fall prevention, incl call for assistance when getting out of bed, Hourly rounding (assess needs \T\ fall precautionary measures) done. Abuse screen: Denies threats or abuse. Denies injuries from another. Nutritional screening: No deficits noted. Tuberculosis screening: No symptoms or risk factors identified. Assessment: 18:14 Reassessment: No changes from previously documented assessment. Patient and/or family ll1 updated on plan of care and expected duration. Pain level reassessed. Vital Signs: 16:36 BP 104 / 77; Pulse 71; Resp 16; Temp 98.4; Pulse Ox 98% ; Weight 83.91 kg; Height 5 ft. ll1 5 in. ; Pain 8/10; 19:10 BP 110 / 75; Pulse 60; Resp 18; Pulse Ox 97% on R/A; Pain 8/10; rg5 16:36 Body Mass Index 30.79 (83.91 kg, 165.1 cm) ll1 16:36 Pain Scale: Adult ll1 19:10 Pain Scale: Adult rg5 ED Course: 16:13 Patient arrived in ED. mr 16:17 Brenda Snowden, LILLY [facility] kb 16:17 John Murray MD is Attending Physician. kb 16:27 Arm band placed on. ll1 16:37 Triage completed. ll1 18:14 Patient placed in an exam room, on a stretcher. ll1 18:29 Josefa Silverio, SHEN is Primary Nurse. db 19:00 Patient has correct armband on for positive identification. Placed in gown. Bed in low ha1 position. Call light in reach. Side rails up X 1. 19:00 Provided Education on: plan of care . ha1 20:32 No provider procedures requiring assistance completed. Patient did not have IV access ha1 during this emergency room visit. Administered Medications: 18:49 CANCELLED (Physician Discretion): norco10 mg-325 mg 1 tabs PO once kb 18:51 Drug: Lidocaine Infiltration (1 %) 1 vials 5 ml Infiltration once; to bedside {Note: db given to provider.} Volume: 5 ml; Route: Infiltration; 19:05 Drug: fentaNYL (PF) IM 50 mcg IM once Route: IM; Site: right deltoid; db 19:43 Follow up: Response: No adverse reaction; Pain is decreased rg5 20:15 Drug: Doxycycline PO 100 mg PO once Route: PO; ha1 20:31 Follow up: Response: No adverse reaction ha1 Medication: 20:32 VIS not applicable for this client. ha1 Outcome: 20:00 Discharge ordered by . kb 20:32 Discharged to home ambulatory, ha1 20:32 Condition: stable 20:32 Discharge instructions given to patient, Instructed on discharge instructions, follow up and referral plans. medication usage, Demonstrated understanding of instructions, follow-up care, medications, Prescriptions given X 1, 20:33 Patient left the ED. ha1 Signatures: Brenda Snowden, SHEETER HELPER-C SHEETER HELPER-Ckb Jo Frederick, Reg Reg mr Shaan Luna RN RN 1 Indira Willams RN RN ha1 Josefa Silverio, SHEN RN Ankush Auguste, SHEN RN rg5
--- NOTE | 2024-08-29 20:00 | EDPHYS ---
Physician Documentation [facility] Name: Radha Mcintosh Age: 48 yrs Sex: Female : 1975 Arrival Date: 08/29/2024 Time: 16:11 Bed 15 Private MD: ED Physician John Murray HPI: 08/29 16:36 This 48 yrs old Female presents to ER via Unassigned with complaints of Abscess. kb 16:36 Patient is a 48-year-old female who presents for abscess to vaginal area that started 4 kb days ago. States she has had this in the past and had to have it surgically drained twice. Denies fever.. Historical: - Allergies: 16:27 No Known Allergies; ll1 - PMHx: 16:27 manic depressive; Bipolar disorder; Anxiety; ll1 - PSHx: 16:27 tubal ligation; ll1 - Immunization history:: Adult Immunizations up to date. - Infectious Disease History:: Denies. - Social history:: Smoking status: unknown. ROS: 19:58 Constitutional: As per HPI kb Exam: 19:58 Constitutional: This is a well developed, well nourished patient who is awake, alert, kb and in no acute distress. Head/Face: Normocephalic, atraumatic. ENT: Moist Mucous membranes Cardiovascular: Regular rate Respiratory: Respirations even and unlabored. No increased work of breathing. Talking in full sentences MS/ Extremity: Pulses equal, no cyanosis. Neurovascular intact. Full, normal range of motion. Neuro: Awake and alert, GCS 15, oriented to person, place, time, and situation. 19:58 Skin: abscess, that is moderate sized, of the left labia majora, with fluctuance, Vital Signs: 16:36 BP 104 / 77; Pulse 71; Resp 16; Temp 98.4; Pulse Ox 98% ; Weight 83.91 kg; Height 5 ft. ll1 5 in. ; Pain 8/10; 19:10 BP 110 / 75; Pulse 60; Resp 18; Pulse Ox 97% on R/A; Pain 8/10; rg5 16:36 Body Mass Index 30.79 (83.91 kg, 165.1 cm) ll1 16:36 Pain Scale: Adult ll1 19:10 Pain Scale: Adult rg5 Procedures: 19:59 I \T\ D: Incision and drainage was performed for an abscess of the left Bartholin's kb gland. Prepped with Betadine, Anesthetized with 3 ml's 1% Lidocaine. Incised with #11 blade. Drained moderate amount purulent fluid. Dressing: sterile 4x4 gauze, the patient tolerated the procedure well. MDM: 16:17 Medical Screening Exam initiated kb 19:59 Differential diagnosis: abscess, allergic reaction, cellulitis, insect bite, bartholins kb gland. Data reviewed: vital signs, nurses notes. Counseling: I had a detailed discussion with the patient and/or guardian regarding the historical points, exam findings, and any diagnostic results supporting the discharge/admit diagnosis, the need for outpatient follow up, a general surgeon, to return to the emergency department if symptoms worsen or persist or if there are any questions or concerns that arise at home. 08/29 18:36 Order name: I\T\D Setup; Complete Time: 18:51 kb Administered Medications: 18:49 CANCELLED (Physician Discretion): norco10 mg-325 mg 1 tabs PO once kb 18:51 Drug: Lidocaine Infiltration (1 %) 1 vials 5 ml Infiltration once; to bedside {Note: db given to provider.} Volume: 5 ml; Route: Infiltration; 19:05 Drug: fentaNYL (PF) IM 50 mcg IM once Route: IM; Site: right deltoid; db 19:43 Follow up: Response: No adverse reaction; Pain is decreased rg5 20:15 Drug: Doxycycline PO 100 mg PO once Route: PO; ha1 20:31 Follow up: Response: No adverse reaction ha1 Disposition Summary: 08/29/24 20:00 Discharge Ordered Notes: Location: Home kb Condition: Stable kb Diagnosis - Abscess of Bartholin's gland kb Followup: kb - With: Emergency Department - When: As needed - Reason: Worsening of condition Followup: kb - With: Private Physician - When: 2 - 3 days - Reason: Recheck today's complaints, Continuance of care, Re-evaluation by your physician Discharge Instructions: - Discharge Summary Sheet kb - Bartholin's Cyst, [id number] kb - Bartholin's Cyst Incision and Drainage kb Forms: - Medication Reconciliation Form kb - Antibiotic Education kb - Prescription Opioid Use kb - Patient Portal Instructions kb - Leadership Thank You Letter kb Prescriptions: - Doxycycline Hyclate 100 mg Oral Tablet - take 1 tablet ORAL route every 12 hours; 20 tablet; Refills: 0, Product kb Selection Permitted Addendum: 08/30/2024 23:31 Co-signature as Attending Physician, John Murray MD I agree with the assessment and c martinez plan of care. Signatures: Brenda Snowden, WATER PURIFIER-C WATER PURIFIER-CkJohn Alfaro MD MD cha Lewis, Lynsay, RN RN 1 Indira Willams RN RN 1 Josefa Silverio RN RN Ankush Auguste RN rg5 Corrections: (The following items were deleted from the chart) 08/29 18:49 18:36 [place] PO 10 mg-325 mg 1 tabs PO once ordered. kb kb
[2024-08-29] MEDS ORDERED: DOXYCYCLINE 100 MG CAP PO ONE (20:15)
[2024-08-30 04:12] VITALS: TEMP 98.4
[2024-08-30 04:14] VITALS: BP 110/75; O2SAT 97
== END 2024-08-29 20:33 | disposition home or self-care (01) ==
LOC: ER 16:11
PROC: 0U9LXZZ Drainage of Vestibular Gland, External Approach (ICD-10-PCS; principal; 2024-08-29)
DX: N75.1 Abscess of Bartholin's gland (principal)
CPT/HCPCS: 10060; 96372; 99284; J2003; J3010